=== PATIENT | male | born 1950 | race Hispanic/Latino ===

== ENCOUNTER 2020-06-24 13:27 | Inpatient (IN) | payer OTHER, SELFPAY ==
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
[2020-06-24 15:52] LABS: Hematocrit 41.6 % (39.6-49.0); Lymphocytes % 31.6 % (15.3-44.8); MPV 9.6 fL (7.6-11.3); RBC Red Blood Cell Count 4.83 M/uL (4.33-5.43)
[2020-06-24 15:53] LABS: Protime INR 1.25
[2020-06-24] MEDS ORDERED: MAGNES/ALUMIN/SIMET 30ML UCUP ONE (15:58)
[2020-06-24] MEDS ORDERED: LIDOCAINE VISCOUS 2% SOLN 15 ML UDC ONE (15:58)
[2020-06-24 16:18] LABS: Albumin 3.5 g/dL (3.4-5.0); Bilirubin Direct 0.1 mg/dL (0-0.2); Bilirubin Total 0.4 mg/dL (0.2-1.0); Magnesium 2.1 mg/dL (1.8-2.4); Potassium 3.8 mmol/L (3.5-5.1)
[2020-06-24 16:19] LABS: Troponin (Emerg Dept Use Only) 6.78 ng/mL (0.0-0.045)
--- NOTE | 2020-06-24 16:31 | RAD REPORT ---
EXAM DESCRIPTION: [place] Single View06/24/2020 3:54 pm CLINICAL HISTORY: Chest pain COMPARISON: 2017 FINDINGS: The lungs appear clear of acute infiltrate. The heart is normal size IMPRESSION: No acute abnormalities displayed
--- NOTE | 2020-06-24 16:39 | ER ---
Nurse's Notes [facility] Name: Cj Grubbs Age: 69 yrs Sex: Male : 1950 Arrival Date: 06/24/2020 Time: 13:30 Bed 20 Private MD: Diagnosis: Non-ST elevation (NSTEMI) myocardial infarction Presentation: 06/24 14:40 Chief complaint: Patient states: Irritated throat when eating spicy food x > 1 month. ss Pt states he has been treating it for heartburn, but wants to make sure his heart is okay. Coronavirus screen: Client denies travel out of the [place] in the last 14 days. Ebola Screen: Patient denies exposure to infectious person. Patient denies travel to an Ebola-affected area in the 21 days before illness onset. Initial Sepsis Screen: Does the patient meet any 2 criteria? No. Patient's initial sepsis screen is negative. Does the patient have a suspected source of infection? No. Patient's initial sepsis screen is negative. Risk Assessment: Do you want to hurt yourself or someone else? Patient reports no desire to harm self or others. Onset of symptoms was April 2020. 14:40 Method Of Arrival: Ambulatory ss 14:40 Acuity: JESSICA 3 ss Historical: - Allergies: 14:42 No Known Allergies; ss - PMHx: 14:42 Hypertension; Diabetes - NIDDM; High Cholesterol; ss - Immunization history:: Adult Immunizations unknown. - Social history:: Smoking status: Patient reports the use of cigarette tobacco products, denies chronic smoking, but will smoke occasionally. Screenin:23 Abuse screen: Denies threats or abuse. Nutritional screening: No deficits noted. ll1 Tuberculosis screening: No symptoms or risk factors identified. Fall Risk IV access (20 points). Total [place] Fall Scale indicates No Risk (0-24 pts). Assessment: 15:20 General: Appears in no apparent distress. Behavior is calm, cooperative, appropriate ll1 for age. Pain: Complains of pain in mid chest/throat Quality of pain is described as burning, aching, Is intermittent. Neuro: No deficits noted. Cardiovascular: Reports chest pain, Heart tones S1 S2 Capillary refill < 3 seconds Clubbing of nail beds is absent JVD is absent Patient's skin is warm and dry. Pulses are all present. Respiratory: No deficits noted. GI: Abdomen is flat, Bowel sounds present X 4 quads. Abd is soft and non tender X 4 quads. Reports indigestion, heart burn, worse after eating. 16:20 Reassessment: No changes from previously documented assessment. Patient and/or family ll1 updated on plan of care and expected duration. Pain level reassessed. Patient is alert, oriented x 3, equal unlabored respirations, skin warm/dry/pink. 17:20 Reassessment: No changes from previously documented assessment. Patient and/or family ll1 updated on plan of care and expected duration. Pain level reassessed. Patient is alert, oriented x 3, equal unlabored respirations, skin warm/dry/pink. 18:20 Reassessment: No changes from previously documented assessment. Patient and/or family ll1 updated on plan of care and expected duration. Pain level reassessed. Patient is alert, oriented x 3, equal unlabored respirations, skin warm/dry/pink. 19:20 Reassessment: No changes from previously documented assessment. Patient and/or family jb4 updated on plan of care and expected duration. Pain level reassessed. Patient is alert, oriented x 3, equal unlabored respirations, skin warm/dry/pink. 19:56 Reassessment: Patient appears in no apparent distress at this time. Patient and/or jb4 family updated on plan of care and expected duration. Pain level reassessed. Patient is alert, oriented x 3, equal unlabored respirations, skin warm/dry/pink. Patient denies pain at this time. Patient states feeling better. Vital Signs: 14:40 BP 147 / 85; Pulse 67; Resp 16; Temp 98.2(TE); Pulse Ox 99% on R/A; Weight 97.52 kg; ss Height 5 ft. 6 in. (167.64 cm); Pain 0/10; 16:22 BP 122 / 59; Pulse 64; Resp 16; ll1 16:43 Weight 88.45 kg (M); ll1 19:06 BP 134 / 61; Pulse 63; Resp 17; Pulse Ox 96% on R/A; ll1 19:45 BP 138 / 69; Pulse 63; Resp 20; Pulse Ox 100% on R/A; jb4 16:43 Body Mass Index 31.47 (88.45 kg, 167.64 cm) 1 ED Course: 13:30 Patient arrived in ED. rg4 14:42 Triage completed. ss 14:42 Arm band placed on right wrist. ss 15:20 Lars Fernandez NP is PHCP. pm1 15:20 Vikram Leiva MD is Attending Physician. pm1 15:30 Inserted saline lock: 22 gauge in right antecubital area, using aseptic technique. ll1 Blood collected. 15:31 Lupe Rico, RN is Primary Nurse. ll1 15:55 XRAY Chest (1 view) In Process Unspecified. EDMS 16:23 Patient has correct armband on for positive identification. Bed in low position. Call ll1 light in reach. Side rails up X 1. Pulse ox on. NIBP on. 16:37 Didier Finch is Hospitalizing Provider. pm1 17:57 COVID swab sent to lab. jp3 20:38 Primary Nurse role handed off by Lupe Rico, FREDI jb4 20:38 Neil Pratt, RN is Primary Nurse. jb4 20:39 No provider procedures requiring assistance completed. Patient admitted, IV remains in jb4 place. Administered Medications: 15:44 Drug: GI Cocktail without - (Maalox Suspension 30 ml, Lidocaine Liquid 2 % 15 ll1 ml) Route: PO; 16:32 Drug: Aspirin Chewable Tablet 162 mg Route: PO; ll1 19:29 Follow up: Response: No adverse reaction jb4 16:32 Drug: Metoprolol 12.5 mg Route: PO; ll1 19:29 Follow up: Response: No adverse reaction 4 16:53 Drug: Heparin (MS-Bolus No thrombolytic) - HEParin 60 units/kg {Co-Signature: tammi ll1 (Do Mercado RN).} Route: IVP; Site: right antecubital; 19:29 Follow up: Response: No adverse reaction; RASS: Alert and Calm (0) jb4 16:55 Drug: Heparin (MS Drip) 12 units/kg/hr - (HEParin 18679 units, D5W 500 ml) ll1 {Co-Signature: tammi (Do Mercado RN).} Route: IV; Rate: calculated rate; Site: right antecubital; 20:39 Follow up: Response: No adverse reaction; IV Status: Infusion continued upon admission jb4 17:03 Drug: PlaVIX 300 mg Route: PO; 1 19:28 Follow up: Response: No adverse reaction; RASS: Alert and Calm (0) [facility] Outcome: 16:38 Decision to Hospitalize by Provider. pm1 20:39 Patient left the ED. jb4 20:39 Admitted to Med/surg accompanied by tech, via stretcher, room 211, Report called to berlin Jarrell RN 20:39 Condition: stable 20:39 Discharge instructions given to patient, Instructed on the need for admit, Demonstrated understanding of instructions. Signatures: Dispatcher [employer] EDDC Do Mercado, FREDI RN ss Lars Fernandez, NOEMI CERTIFIED SHORTHAND REPORTER pm1 Renetta Grubbs 4 Neil Pratt RN RN jb4 David Hernandez 3 Lupe Rico RN RN 1 Do Mercado RN ss Corrections: (The following items were deleted from the chart) 16:23 16:22 Inserted saline lock: 22 gauge in right antecubital area, using aseptic ll1 technique. Blood collected. 1 06/25 06:07 01/ 20:39 Admitted to Med/surg accompanied by tech, via stretcher, [place] [id number]
--- NOTE | 2020-06-24 16:39 | EDPHYS ---
Physician Documentation [facility] Name: Cj Grubbs Age: 69 yrs Sex: Male : 1950 Arrival Date: 06/24/2020 Time: 13:30 Bed 20 Private MD: ED Physician Vikram Leiva HPI: 06/24 15:26 This 69 yrs old Male presents to ER via Ambulatory with complaints of pm1 Heartburn. 15:26 The patient or guardian reports chest pain that is located primarily in the mid-sternal pm1 area. Onset: 1 month(s) ago. The pain does not radiate. Associated signs and symptoms: The patient has no apparent associated signs or symptoms, Pertinent negatives: abdominal pain, cough, dizziness, headache, nausea, palpitations, shortness of breath, vomiting. The chest pain is described as a pressure. Duration: The patient or guardian reports multiple episodes, has chest pain each morning. Modifying factors: The symptoms are alleviated by sometimes tums helps. the symptoms are aggravated by eating. Severity of pain: in the emergency department the pain is unchanged. The patient has not experienced similar symptoms in the past. The patient has not recently seen a physician, the patient's primary care provider is Dr. Kohli. Historical: - Allergies: 14:42 No Known Allergies; ss - PMHx: 14:42 Hypertension; Diabetes - NIDDM; High Cholesterol; ss - Immunization history:: Adult Immunizations unknown. - Social history:: Smoking status: Patient reports the use of cigarette tobacco products, denies chronic smoking, but will smoke occasionally. ROS: 15:26 Constitutional: Negative for fever, chills, and weight loss, Neck: Negative for injury, pm1 pain, and swelling. 15:26 Respiratory: Negative for shortness of breath, cough, wheezing, and pleuritic chest pain, Abdomen/GI: Negative for abdominal pain, nausea, vomiting, diarrhea, and constipation, Back: Negative for injury and pain, MS/Extremity: Negative for injury and deformity, Skin: Negative for injury, rash, and discoloration, Neuro: Negative for headache, weakness, numbness, tingling, and seizure. 15:26 Cardiovascular: Positive for chest pain, Negative for edema, orthopnea, palpitations. Exam: 15:26 Constitutional: This is a well developed, well nourished patient who is awake, alert, pm1 and in no acute distress. Head/Face: Normocephalic, atraumatic. Chest/axilla: Normal chest wall appearance and motion. Nontender with no deformity. No lesions are appreciated. Cardiovascular: Regular rate and rhythm with a normal S1 and S2. No gallops, murmurs, or rubs. Normal PMI, no JVD. No pulse deficits. Respiratory: Lungs have equal breath sounds bilaterally, clear to auscultation and percussion. No rales, rhonchi or wheezes noted. No increased work of breathing, no retractions or nasal flaring. 15:26 Back: No spinal tenderness. No costovertebral tenderness. Full range of motion. Skin: Warm, dry with normal turgor. Normal color with no rashes, no lesions, and no evidence of cellulitis. MS/ Extremity: Pulses equal, no cyanosis. Neurovascular intact. Full, normal range of motion. 15:26 Abdomen/GI: Exam negative for acute changes, Inspection: abdomen appears normal, Palpation: abdomen is soft and non-tender, in all quadrants. 15:26 Neuro: Exam negative for acute changes, Orientation: is normal, Mentation: is normal, Motor: is normal, moves all fours. Vital Signs: 14:40 BP 147 / 85; Pulse 67; Resp 16; Temp 98.2(TE); Pulse Ox 99% on R/A; Weight 97.52 kg; ss Height 5 ft. 6 in. (167.64 cm); Pain 0/10; 16:22 BP 122 / 59; Pulse 64; Resp 16; ll1 16:43 Weight 88.45 kg (M); ll1 19:06 BP 134 / 61; Pulse 63; Resp 17; Pulse Ox 96% on R/A; ll1 19:45 BP 138 / 69; Pulse 63; Resp 20; Pulse Ox 100% on R/A; jb4 16:43 Body Mass Index 31.47 (88.45 kg, 167.64 cm) ll1 MDM: 15:20 Patient medically screened. pm1 16:20 Data reviewed: vital signs. Data interpreted: Pulse oximetry: on room air is 99 %. pm1 Interpretation: normal. Counseling: I had a detailed discussion with the patient and/or guardian regarding: the historical points, exam findings, and any diagnostic results supporting the discharge/admit diagnosis, lab results, radiology results, the need for further work-up and treatment in the hospital. 16:30 ED course: Patient currently chest pain free. Reports resolution with GI cocktail. pm1 16:46 Physician consultation: Shaheed Apple MD was called at 16:28, was contacted at 16:46, pm1 regarding consult, patient's condition, and will see patient. 17:23 Physician consultation: Didier Jaykassandra was called at 17:00, was contacted at 17:20, pm1 regarding admission, patient's condition, requests consultation with Dr. Apple for his treatment plan. 17:32 Physician consultation: Shaheed Apple MD in the emergency department to see patient at pm1 17:32, Cardiac cath on Friday. 06/24 15:25 Order name: Basic Metabolic Panel; Complete Time: 16:26 pm1 06/24 15:25 Order name: CBC with Diff; Complete Time: 16:19 pm1 06/24 15:25 Order name: LFT's; Complete Time: 16:26 pm1 06/24 15:25 Order name: Magnesium; Complete Time: 16:26 pm06/24 15:25 Order name: NT PRO-BNP; Complete Time: 16:26 pm1 06/24 15:25 Order name: PT-INR; Complete Time: 16:19 pm06/24 15:25 Order name: Troponin (emerg Dept Use Only); Complete Time: 16:26 pm1 06/24 15:25 Order name: XRAY Chest (1 view); Complete Time: 16:32 pm06/24 16:57 Order name: CL CARDIAC CATH - REQUEST EDMS 06/24 17:38 Order name: COVID-19 pm1 06/24 19:29 Order name: SARS-COV-2 RT PCR; Complete Time: 19:50 EDMS 06/24 15:25 Order name: EKG; Complete Time: 15:27 pm06/24 15:25 Order name: Cardiac monitoring; Complete Time: 16:25 pm06/24 15:25 Order name: EKG - Nurse/Tech; Complete Time: 16:25 pm1 06/24 15:25 Order name: IV Saline Lock; Complete Time: 15:31 pm06/24 15:25 Order name: Labs collected and sent; Complete Time: 15:31 pm1 06/24 15:25 Order name: O2 Per Protocol; Complete Time: 15:31 pm1 06/24 15:25 Order name: O2 Sat Monitoring; Complete Time: 15:31 pm1 Administered Medications: 15:44 Drug: GI Cocktail without - (Maalox Suspension 30 ml, Lidocaine Liquid 2 % 15 ll1 ml) Route: PO; 16:32 Drug: Aspirin Chewable Tablet 162 mg Route: PO; ll1 19:29 Follow up: Response: No adverse reaction jb4 16:32 Drug: Metoprolol 12.5 mg Route: PO; ll1 19:29 Follow up: Response: No adverse reaction jb4 16:53 Drug: Heparin (MA-Bolus No thrombolytic) - HEParin 60 units/kg {Co-Signature: tammi paz1 (Do Mercado RN).} Route: IVP; Site: right antecubital; 19:29 Follow up: Response: No adverse reaction; RASS: Alert and Calm (0) jb4 16:55 Drug: Heparin (MA Drip) 12 units/kg/hr - (HEParin 13873 units, D5W 500 ml) ll1 {Co-Signature: tammi (Do Mercado RN).} Route: IV; Rate: calculated rate; Site: right antecubital; 20:39 Follow up: Response: No adverse reaction; IV Status: Infusion continued upon admission jb4 17:03 Drug: PlaVIX 300 mg Route: PO; ll1 19:28 Follow up: Response: No adverse reaction; RASS: Alert and Calm (0) jb4 Disposition: 06/25 07:29 Co-signature as Attending Physician, Vikram Leiva MD I agree with the assessment and [facility] plan of care. Disposition: 06/24/20 16:38 Hospitalization ordered by Didier Finch for Inpatient Admission. Preliminary diagnosis is Non-ST elevation (NSTEMI) myocardial infarction. - Bed requested for Telemetry/MedSurg (Inpatient). - Status is Inpatient Admission. jb4 - Condition is Stable. - Problem is new. - Symptoms have improved. Signatures: Dispatcher [employer] EDTomasa Cano RN RN dw Anderson, Corey, MD MD cha Smirch, Shelby, RN RN ss Marinas, Patrick, WELFARE INVESTIGATOR WELFARE INVESTIGATOR pm1 Neil Pratt RN RN jb4 Lupe Rico RN RN ll1 Do Mercado RN ss Corrections: (The following items were deleted from the chart) 06/24 19:47 16:38 Hospitalization Ordered by Didier Finch for Inpatient Admission. Preliminary dw diagnosis is Non-ST elevation (NSTEMI) myocardial infarction. Bed requested for Telemetry/MedSurg (Inpatient). Status is Inpatient Admission. Condition is Stable. Problem is new. Symptoms have improved. pm1 20:39 19:47 06/24/2020 16:38 Hospitalization Ordered by Didier Finch for Inpatient jb4 Admission. Preliminary diagnosis is Non-ST elevation (NSTEMI) myocardial infarction. Bed requested for Telemetry/MedSurg (Inpatient). Status is Inpatient Admission. Condition is Stable. Problem is new. Symptoms have improved. dw
[2020-06-24] MEDS ORDERED: ASPIRIN 81 MG CHEWABLE TABLET ONE (16:43)
[2020-06-24] MEDS ORDERED: METOPROLOL TAR 25 MG TAB ONE (16:44)
[2020-06-24] MEDS ORDERED: HEPARIN 5000 UNIT/ML 1 ML VIAL ONE (16:53)
[2020-06-24] MEDS ORDERED: HEPARIN/D5W 25,000 UNIT/500 ML BAG IV ONE (16:53)
[2020-06-24] MEDS ORDERED: CLOPIDOGREL 75 MG TABLET ONE (17:16)
--- NOTE | 2020-06-24 18:20 | P.HP ---
Certification for Inpatient Patient admitted to: Inpatient With expected LOS: >2 Midnights Practitioner: I am a practitioner with admitting privileges, knowledge of patient current condition, hospital course, and medical plan of care. Services: Services provided to patient in accordance with Admission requirements found in Title 42 Section 412.3 of the Code of Federal Regulations Patient History Date of Service: 06/24/20 Reason for admission: Chest pain History of Present Illness: 69-year-old Gentleman with a history of diabetes mellitus, hypertension presented to the emergency department with a complaint left-sided anterior chest pain of sudden onset. Symptoms preceded by intermittent heartburn. His troponin in the emergency department was significantly elevated to 6. EKG demonstrated sinus rhythm. Patient was asymptomatic on arrival to the emergency department. He denied any diaphoresis or palpitation or shortness of breath. He rated his pain as mild, no aggravating or relieving factors. Patient was given aspirin, metoprolol as well as GI cocktail. Cardiology was contacted by the ED provider recommend hospitalization for cardiac catheterization on Friday06/26/2019. Patient admitted for further management. - Past Medical/Surgical History -: DM type 2 -: Hypertension -: Hypercholesteremia - Family History Mother -: Heart disease Brother -: Heart disease - Social History Smoking Status: Current some day smoker Alcohol use: No CD- Drugs: No Place of Residence: Home Review of Systems Other: Except as documented, all other systems reviewed and negative. Physical Examination - Physical Exam General: Alert, In no apparent distress, Oriented x3 HEENT: Atraumatic, PERRLA, Mucous membr. moist/pink, EOMI, Sclerae nonicteric Neck: Supple, JVD not distended Respiratory: Clear to auscultation bilaterally, Normal air movement Cardiovascular: No edema, Regular rate/rhythm, Normal S1 S2, No murmurs Capillary refill: <2 Seconds Gastrointestinal: Normal bowel sounds, Soft and benign, Non-distended, No tenderness Musculoskeletal: No swelling, No tenderness Integumentary: No rashes, No erythema Neurological: Normal speech, Normal strength at 5/5 x4 extr, Cranial nerves 3-12 intact - Studies Laboratory Data (last 24 hrs) 06/24/20 15:35: PT 14.7 H, INR 1.25 06/24/20 15:35: WBC 12.5 H, Hgb 13.7, Hct 41.6, Plt Count 210 06/24/20 15:35: Sodium 138, Potassium 3.8, BUN 15, Creatinine 0.92, Glucose 63 L, Magnesium 2.1, Total Bilirubin 0.4, AST 70 H, ALT 30, Alkaline Phosphatase 72 Assessment and Plan - Problems (Diagnosis) (1) NSTEMI (non-ST elevated myocardial infarction) Current Visit: Yes Status: Acute (2) DM type 2 (diabetes mellitus, type 2) Current Visit: Yes Status: Acute (3) Hypertension Current Visit: Yes Status: Acute (4) Hypercholesteremia Current Visit: Yes Status: Acute - Plan Admit the patient to the medical floor. Start heparin drip per cardiology recommendation. Start aspirin and Plavix. Metoprolol 25 mg b.i.d. Obtain echocardiogram. Continue to trend troponin. Serial EKG. Start Lipitor and check lipid profile. Insulin sliding scale for glucose management. - Advance Directives Does patient have a Living Will: No Does patient have a Durable POA for Healthcare: No
--- NOTE | 2020-06-24 20:56 | CON ---
Date of Consultation: 06/24/2020 Reason For Admission: Non-ST elevation myocardial infarction. History Of Present Illness: Mr. Grubbs is a 69-year-old [place] male with history of diabetes , hypertension, dyslipidemia, has been having intermittent chest pain since April. His pain is no nexertional, usually occurs after eating. However, it was worse today and he decided to come to the hospital. His symptoms actually were relieved with GI cocktail. He had a normal EKG and normal x-ra y. However, his troponin came back 6.78, indicating a non-ST elevation myocardial infarction. I was asked to see him. He denied PND, orthopnea, pedal edema, palpitations, or syncope. Past Medical History: As stated earlier. Allergies: NONE. Review of Systems: Negative. Social History: Negative. Family History: Positive for heart disease. Medications: Listed by Dr. Finch. Physical Examination: Vital signs: Stable. He was afebrile. HEENT: Negative. Neck: Supple with no bruit. Chest: Clear to auscultation and percussion. Cardiac: Revealed a regular rhythm and rate. No murmurs, gallops, or rubs. Abdomen: Benign. Extremities: Revealed no clubbing, cyanosis, or edema. Diagnostic Data: As stated earlier. Impression And Plan: 1.Non-ST elevation myocardial infarction. 2.Diabetes. 3.Hypertension. 4.Dyslipidemia. I think the patient needs to be on aspirin, heparin, beta edward and a statin. He needs to be on hi s home medication. He needs to have a heart catheterization done on Friday as an inpatient. The manjeet e will be discussed with the patient in more details. He understands the risk and the benefits of th e procedure and he agrees to proceed. EWA/TAJ Voice ID: [id number] Report ID: [id number]
[2020-06-24] MEDS ORDERED: NITROGLYCERIN 0.4 MG/TAB SL PRN (20:57)
[2020-06-24] MEDS ORDERED: MORPHINE 2 MG/ML SYR IV PRN (20:57)
[2020-06-24] MEDS ORDERED: HEPARIN/D5W 500 ML IV PRN (20:57)
[2020-06-24] MEDS: INSULIN -REGULAR HUMAN 50 UNIT/0.5 ML ML SQ SCH (21:00)
[2020-06-24 21:31] LABS: Absolute Lymphocytes (CBC) 4.5 K/uL (0.7-4.9); Basophils % 0.9 % (0-1.3); Hematocrit 39.6 % (39.6-49.0); Lymphocytes % 30.6 % (15.3-44.8); MPV 9.4 fL (7.6-11.3); RBC Red Blood Cell Count 4.66 M/uL (4.33-5.43)
[2020-06-24 21:37] LABS: Protime INR 1.29
[2020-06-24 22:02] LABS: Troponin I 7.37 ng/mL (0.0-0.045)
[2020-06-24] MEDS: METOPROLOL TAR 50 MG TAB PO SCH (22:20)
[2020-06-24 23:13] VITALS: BMI 31.4
[2020-06-25] MEDS ORDERED: MELATONIN 5 MG TABLET PO ONE (01:27)
[2020-06-25 05:56] LABS: Absolute Lymphocytes (CBC) 3.9 K/uL (0.7-4.9); Basophils % 0.5 % (0-1.3); Hematocrit 38.7 % (39.6-49.0); MPV 10.1 fL (7.6-11.3); RBC Red Blood Cell Count 4.53 M/uL (4.33-5.43)
[2020-06-25 06:01] LABS: Potassium 3.9 mmol/L (3.5-5.1)
[2020-06-25] MEDS: INSULIN -REGULAR HUMAN 50 UNIT/0.5 ML ML SQ SCH ×4 (07:30→20:16)
[2020-06-25] MEDS: ASPIRIN EC 81 MG TAB PO SCH (09:22)
[2020-06-25] MEDS: CLOPIDOGREL 75 MG TABLET PO SCH (09:22)
[2020-06-25] MEDS: METOPROLOL TAR 50 MG TAB PO SCH ×2 (09:23→20:14)
--- NOTE | 2020-06-25 11:10 | P.PN ---
Subjective Date of Service: 06/25/20 Chief Complaint: Chest pain Patient denies any chest pain. No other complain. Troponin elevated but trended flat. Physical Examination - Vital Signs Temperature: 98.8 F Blood Pressure: 119/57 Pulse: 60 Respirations: 16 Pulse Ox (%): 95 - Physical Exam General: Alert, In no apparent distress HEENT: Mucous membr. moist/pink Respiratory: Clear to auscultation bilaterally, Normal air movement Cardiovascular: No edema, Regular rate/rhythm, Normal S1 S2 Gastrointestinal: Normal bowel sounds, Soft and benign, Non-distended, No tenderness Musculoskeletal: No swelling, No tenderness Integumentary: No rashes Neurological: Normal speech, Normal strength at 5/5 x4 extr - Studies Laboratory Data (last 24 hrs) 06/24/20 15:35: PT 14.7 H, INR 1.25 06/24/20 15:35: WBC 12.5 H, Hgb 13.7, Hct 41.6, Plt Count 210 06/24/20 15:35: Sodium 138, Potassium 3.8, BUN 15, Creatinine 0.92, Glucose 63 L, Magnesium 2.1, Total Bilirubin 0.4, AST 70 H, ALT 30, Alkaline Phosphatase 72 Assessment And Plan - Current Problems (Diagnosis) (1) NSTEMI (non-ST elevated myocardial infarction) Current Visit: Yes Status: Acute (2) DM type 2 (diabetes mellitus, type 2) Current Visit: Yes Status: Acute (3) Hypertension Current Visit: Yes Status: Acute (4) Hypercholesteremia Current Visit: Yes Status: Acute - Plan Continue heparin drip, aspirin and Plavix. Metoprolol 25 mg b.i.d. holding home antihypertensives-amlodipine and benazepril for now. Echocardiogram is pending. Lipid profile reviewed. LDL 100. Continue Lipitor. Insulin sliding scale for glucose management. Dr. Apple is planning cardiac catheterization tomorrow. Hold metformin and glimepiride.
--- NOTE | 2020-06-25 15:28 | EKG ---
Test Date: 2020-06-24 Test Time: 15:51:14 Feed Elevator Worker: SALONI MEASUREMENT RESULTS: Intervals: Rate: 67 DE: 200 QRSD: 76 QT: 386 QTc: 407 [place]: P: 29 DE: 200 QRS: 30 T: 14 INTERPRETIVE STATEMENTS: Normal sinus rhythm Normal ECG No previous ECG available for comparison Electronically Signed On 06-25-20 15:26:31 PUBLIC HEALTH PROFESSOR by Shaheed Apple
[2020-06-25] MEDS: HEPARIN/D5W 25,000 UNIT/500 ML BAG IV SCH (17:30)
[2020-06-25] MEDS: ATORVASTATIN 10 MG TAB PO SCH (20:14)
[2020-06-26] MEDS: METOPROLOL TAR 50 MG TAB PO SCH ×2 (05:24→20:17)
[2020-06-26] MEDS: ASPIRIN EC 81 MG TAB PO SCH (05:26)
[2020-06-26] MEDS: CLOPIDOGREL 75 MG TABLET PO SCH (05:26)
[2020-06-26 05:30] LABS: MPV 9.8 fL (7.6-11.3)
[2020-06-26 07:05] LABS: Platelet Estimate ADEQ
[2020-06-26] MEDS ORDERED: HEPA 1000U/500MLS 1,000 UNIT/500 ML BAG IV ONE (07:11)
[2020-06-26] MEDS: INSULIN -REGULAR HUMAN 50 UNIT/0.5 ML ML SQ SCH ×4 (07:30→20:17)
[2020-06-26] MEDS ORDERED: NA CHLORIDE 0.9% 500 ML ONE (08:27)
[2020-06-26] MEDS ORDERED: FENTANYL CITR 100 MCG/2 ML ONE (09:55)
[2020-06-26] MEDS ORDERED: NA CHLORIDE 0.9% 0 ML ONE (09:55)
[2020-06-26] MEDS ORDERED: ATROPINE SULF 1 MG/10 ML SYR IV ONE (09:55)
[2020-06-26] MEDS ORDERED: MIDAZOLAM HCL 2 MG/2 ML INJ ONE (09:55)
--- NOTE | 2020-06-26 09:55 | PN ---
Date of Progress Note: 06/25/2020 Mr. Grubbs had came in with a non-ST elevation myocardial infarction. He has multiple risk factors i ncluding hypertension, diabetes, dyslipidemia. EKG is normal. Chest x-ray is normal. Telemetry is normal. No reported symptoms of chest pain. Troponin slightly increased since yesterday. Creatinin e remained normal. Plan for catheterization on Friday to define his coronary anatomy. The patient u nderstands the risks and the benefits of the procedure and he agrees to proceed. EWA/TAJ Voice ID: [id number] Report ID: [id number]
--- NOTE | 2020-06-26 10:55 | OP ---
Surgeon: Shaheed Apple MD Procedure In Detail: Mr. Grubbs, 69, was admitted to the hospital on 06/24/2020 with non-ST elevatio n myocardial infarction, brought to the cath lab nurse today as an inpatient, prepped and draped in the rou saulo sterile fashion. A 6-Malian sheath introduced in the right common femoral artery successfully. Angiography there showed a common femoral artery stenosis. The sheath was inserted above that. Sta rClose was used to close the case. Selective coronary arteriogram with JL4 and JR4 respectively were used. He had a 90% stenosis in the proximal RCA, 90% stenosis in the mid RCA with good distal vesse l on the right side. He had an 80% ostial left main, 80% proximal LAD, 80% mid LAD. The circumflex was diffusely diseased, he was codominant. There were no complications. Blood Loss: 5 mL. Postoperative Diagnosis: Severe coronary artery disease. Plan: For coronary artery bypass surgery. I will make arrangements for the patient to transfer to [facility] today. We will resume his heparin. Echocardiogram will be done later. Case was discussed wi th the patient and the family. EWA/TAJ Voice ID: [id number] Report ID: [id number]
[2020-06-26] MEDS ORDERED: HEPARIN 5000 UNIT/ML 1 ML VIAL IV SCH (14:00)
--- NOTE | 2020-06-26 15:13 | ECHO ---
HEIGHT: 5 ft 6 in WEIGHT: 195 lb 0 oz DATE OF STUDY: 06/26/[address]: nishant tolliver 2-DIMENSIONAL: YES M.MODE: YES DOPPLER: YES COLOR FLOW: YES TDS: PORTABLE: DEFINITY: BUBBLE STUDY: DIAGNOSIS: NON ST ELEVATION MYOCARDIAL INFARCTION CARDIAC HISTORY: CATHERIZATION: YES SURGERY: PROSTHETIC VALVE: PACEMAKER: MEASUREMENTS (cm) DIASTOLIC (NORMALS) SYSTOLIC (NORMALS) IVSd 1.2 (0.6-1.2) LA Diam 4.7 (1.9-4.0) LVEF 55-60% LVIDd 4.8 (3.5-5.7) LVIDs 3.0 (2.0-3.5) %FS 39% LVPWd 1.1 (0.6-1.2) Ao Diam 3.1 (2.0-3.7) 2 DIMENSIONAL ASSESSMENT: RIGHT ATRIUM: NORMAL LEFT ATRIUM: NORMAL RIGHT VENTRICLE: NORMAL LEFT VENTRICLE: NORMAL TRICUSPID VALVE: NORMAL MITRAL VALVE: MILD MITRAL REGURGITATION PULMONIC VALVE: NORMAL AORTIC VALVE: MILD CALCIFICATION PERICARDIAL EFFUSION: NONE AORTIC ROOT: NORMAL LEFT VENTRICULAR WALL MOTION: NORMAL DOPPLER/COLOR FLOW: NORMAL COMMENTS: NORMAL LEFT VENTRICULAR EJECTON FRACTION 55-60%. NORMAL WALL MOTION. MILD MITRAL REGURGITATION. TECHNOLOGIST: BARRY ALFONSO
--- NOTE | 2020-06-26 15:24 | P.PN ---
Subjective Date of Service: 06/26/20 Chief Complaint: Chest pain Status post cardiac catheterization today. Patient found have multiple cardiac vessel occlusions and needing CABG. Physical Examination - Vital Signs Temperature: 98.7 F Blood Pressure: 143/67 Pulse: 57 Respirations: 18 Pulse Ox (%): 96 - Physical Exam General: Alert, In no apparent distress Neck: Supple, JVD not distended Respiratory: Clear to auscultation bilaterally, Normal air movement Cardiovascular: No edema, Regular rate/rhythm, Normal S1 S2 Gastrointestinal: Soft and benign, Non-distended, No tenderness Musculoskeletal: No swelling Integumentary: No rashes Neurological: Normal strength at 5/5 x4 extr, Cranial nerves 3-12 intact Assessment And Plan - Current Problems (Diagnosis) (1) NSTEMI (non-ST elevated myocardial infarction) Current Visit: Yes Status: Acute (2) DM type 2 (diabetes mellitus, type 2) Current Visit: Yes Status: Acute (3) Hypertension Current Visit: Yes Status: Acute (4) Hypercholesteremia Current Visit: Yes Status: Acute - Plan Continue heparin drip, aspirin and Plavix. Metoprolol 25 mg b.i.d. holding home antihypertensives-amlodipine and benazepril for now. Continue Lipitor. Insulin sliding scale for glucose management. Dr. Apple is arranging for patient to be transferred to [place] for CABG.
[2020-06-26 17:56] LABS: Absolute Lymphocytes (CBC) 3.7 K/uL (0.7-4.9); Basophils % 0.7 % (0-1.3); Hematocrit 40.5 % (39.6-49.0); Lymphocytes % 32.8 % (15.3-44.8); MPV 9.5 fL (7.6-11.3); RBC Red Blood Cell Count 4.75 M/uL (4.33-5.43)
--- NOTE | 2020-06-26 18:18 | P.DS ---
Admission Date: 06/24/20 Discharge Date: 06/26/20 Disposition: TRANSFER TO [facility] Discharge Condition: FAIR Reason for Admission: Chest pain - Problems (1) NSTEMI (non-ST elevated myocardial infarction) Current Visit: Yes Status: Acute (2) DM type 2 (diabetes mellitus, type 2) Current Visit: Yes Status: Acute (3) Hypertension Current Visit: Yes Status: Acute (4) Hypercholesteremia Current Visit: Yes Status: Acute Brief History of Present Illness: 69-year-old Gentleman with a history of diabetes mellitus, hypertension presented to the emergency department with a complaint left-sided anterior chest pain of sudden onset. Symptoms preceded by intermittent heartburn. His troponin in the emergency department was significantly elevated to 6. EKG demonstrated sinus rhythm. Patient was asymptomatic on arrival to the emergency department. He denied any diaphoresis or palpitation or shortness of breath. He rated his pain as mild, no aggravating or relieving factors. Patient was given aspirin, metoprolol as well as GI cocktail. Cardiology was contacted by the ED provider who recommend hospitalization for cardiac catheterization on M onday 06/26/2019. Patient admitted for further management. Hospital Course: Patient admitted and started on heparin drip, aspirin, Plavix, metoprolol and statin per ACS protocol. His troponin was trended and it went from 6 to 7. Cardiac catheterization was performed today and patient found to have 90% stenosis in the proximal RCA, 90% stenosis in the mid RCA with good distal vessel on the right side. He had an 80% ostial left main, 80% proximal LAD, 80% mid LAD. Cardiology recommend CABG and made arrangements for patient to be transferred to [facility] for cardiac bypass surgery. The patient has been accepted for transfer. Vitals as stable and he is deemed stable for transfer. Vital Signs/Physical Exam: Temp Pulse Resp BP Pulse Ox 98.7 F 57 18 143/67 H 96 06/26/20 15:24 06/26/20 15:24 06/26/20 15:24 06/26/20 15:24 06/26/20 15:24 General: Alert, In no apparent distress Respiratory: Clear to auscultation bilaterally, Normal air movement Cardiovascular: Regular rate/rhythm, Normal S1 S2 Gastrointestinal: Soft and benign, No tenderness Musculoskeletal: No swelling Integumentary: No rashes Neurological: Normal strength at 5/5 x4 extr Laboratory Data at Discharge: WBC Cancelled 06/26/20 18:15 Hgb Cancelled 06/26/20 18:15 Hct Cancelled 06/26/20 18:15 Plt Count Cancelled 06/26/20 18:15 PT 15.1 SECONDS (9.5-12.5) H 06/24/20 21:19 INR 1.29 06/24/20 21:19 APTT 25.3 SECONDS (24.3-36.9) 06/26/20 12:39 Sodium 139 mmol/L (136-145) 06/25/20 05:09 Potassium 3.9 mmol/L (3.5-5.1) 06/25/20 05:09 BUN 13 mg/dL (7-18) 06/25/20 05:09 Creatinine 0.92 mg/dL (0.55-1.3) 06/25/20 05:09 Glucose 103 mg/dL (74-106) 06/25/20 05:09 Magnesium 2.1 mg/dL (1.8-2.4) 06/24/20 15:35 Total Bilirubin 0.4 mg/dL (0.2-1.0) 06/24/20 15:35 AST 70 U/L (15-37) H 06/24/20 15:35 ALT 30 U/L (12-78) 06/24/20 15:35 Alkaline Phosphatase 72 U/L (45-117) 06/24/20 15:35 Troponin I 5.56 ng/mL (0.0-0.045) H* D 06/25/20 01:17 Triglycerides 114 mg/dL (<150) 06/24/20 21:19 Cholesterol 167 mg/dL (<200) 06/24/20 21:19 HDL Cholesterol 44 mg/dL (40-60) 06/24/20 21:19 Cholesterol/HDL Ratio 3.80 06/24/20 21:19 Home Medications: Amlodipine Besylate/Benazepril [Lotrel 10-20 mg Capsule] 1 each PO DAILY 06/24/20 Glimepiride [Amaryl] 10 mg PO DAILY 06/24/20 Metformin ER [Glucophage ER] 750 mg PO BID 06/24/20 Pravastatin Sodium 10 mg PO DAILY 06/24/20 Followup: Andrzej Cano MD [Primary Care Provider] - Time spent managing pt's care (in minutes): 35
[2020-06-26 18:39] VITALS: TEMP 98.9
[2020-06-26] MEDS: ATORVASTATIN 10 MG TAB PO SCH (20:17)
[2020-06-26 20:18] VITALS: BP 164/76
[2020-06-26 22:19] VITALS: O2SAT 93
[2020-06-26] MEDS: HEPARIN/D5W 25,000 UNIT/500 ML BAG IV SCH (23:15)
== END 2020-06-27 | disposition short-term general hospital (02) | DRG 282 ==
LOC: ER 13:27 → ERHOLD 18:15 → 2ND 20:21
PROVIDERS: ADMIT Internal Medicine; ATTEND Internal Medicine
PROC: 4A023N7 Measurement of Cardiac Sampling and Pressure, Left Heart, Percutaneous Approach (ICD-10-PCS; principal; 2020-06-26)
PROC: B2111ZZ Fluoroscopy of Multiple Coronary Arteries using Low Osmolar Contrast (ICD-10-PCS; 2020-06-26)
DX: I21.4 Non-ST elevation (NSTEMI) myocardial infarction (principal); I10 Essential (primary) hypertension; E11.9 Type 2 diabetes mellitus without complications; E78.5 Hyperlipidemia, unspecified; I25.10 Atherosclerotic heart disease of native coronary artery without angina pectoris; E78.00 Pure hypercholesterolemia, unspecified; F17.200 Nicotine dependence, unspecified, uncomplicated; Z79.84 Long term (current) use of oral hypoglycemic drugs; Z79.899 Other long term (current) drug therapy; Z20.822 Contact with and (suspected) exposure to COVID-19
CPT/HCPCS: 36415; 71045; 80048; 80061; 80076; 82947; 83735; 83880; 84484; 85025; 85049; 85610; 85730; 93005; 93306; 93454; 96365; 96366; 99285; C1893; J0583; J1644; J2250; J3010; J7040; U0003

== ENCOUNTER 2021-11-05 06:40 | Day surgery (SDC) | payer OTHER ==
[2021-11-02 13:05] LABS: Absolute Lymphocytes (CBC) 3.4 K/uL (0.7-4.9); Hematocrit 41.1 % (39.6-49.0); Lymphocytes % 43.4 % (15.3-44.8); MPV 9.4 fL (7.6-11.3); RBC Red Blood Cell Count 4.68 M/uL (4.33-5.43)
[2021-11-02 13:11] LABS: Protime INR 1.23
--- NOTE | 2021-11-02 14:01 | RAD REPORT ---
EXAM DESCRIPTION: RAD - Chest Pa And Lat (2 Views) - 11/02/2021 1:53 pm CLINICAL HISTORY: Pre op pending carotid angiogram Chest pain. COMPARISON: Chest Single View dated 06/24/2020; Chest Pa And Lat (2 Views) dated 06/24/2017 FINDINGS: The lungs are clear. The heart is normal in size. Sternotomy. Postsurgical left clavicle. IMPRESSION: No acute or concerning finding suspected.
[2021-11-05] MEDS ORDERED: NA CHLORIDE 0.9% 500 ML ONE (06:51)
[2021-11-05] MEDS ORDERED: HEPA 1000U/500MLS 1,000 UNIT/500 ML BAG IV ONE (06:54)
[2021-11-05] MEDS ORDERED: LIDOCAINE 1% MPF 30 ML VIAL ONE (06:54)
[2021-11-05 07:10] VITALS: TEMP 97
[2021-11-05] MEDS ORDERED: MIDAZOLAM HCL 2 MG/2 ML INJ ONE ×2 (07:29→07:41)
[2021-11-05] MEDS ORDERED: FENTANYL CITR 100 MCG/2 ML ONE (07:29)
[2021-11-05] MEDS ORDERED: ATROPINE SULF 1 MG/10 ML SYR IV ONE (07:29)
[2021-11-05 09:07] VITALS: O2SAT 98
[2021-11-05 09:44] VITALS: BP 139/61
--- NOTE | 2021-11-05 10:10 | EKG ---
Test Date: 2021-11-02 Test Time: 11:42:28 Business Reporting Developer: MAXWELL MEASUREMENT RESULTS: Intervals: Rate: 53 [place]: 222 QRSD: 74 QT: 450 QTc: 422 [place]: P: 30 [place]: 222 QRS: 6 T: 23 INTERPRETIVE STATEMENTS: Sinus bradycardia with 1st degree AV block Possible Left atrial enlargement Possible Inferior infarct, age undetermined Abnormal ECG Compared to ECG 06/24/2020 15:51:14 First degree AV block now present Myocardial infarct finding now present Sinus rhythm no longer present Electronically Signed On 11-05-21 10:03:12 CDT by Shaheed Apple
--- NOTE | 2021-11-05 10:15 | OP ---
Surgeon: Shaheed Apple MD Sludge Filtration Operator: Ms. Marta Rubio Procedure: Admitted to my service as an outpatient for a bilateral selective carotid angiogram. Indication: CVD. Mr. Grubbs is 71. He has had a history of CABG, dyslipidemia, hypertension, abnor mal carotid Doppler bilaterally. Procedure In Detail: Brought to the microbiological lab technician today, prepped and draped in the routine sterile fashio n. Given Versed and fentanyl for sedation. A 6-Telugu sheath was introduced in the right common fem oral artery successfully using the Seldinger technique and 10 cc xylocaine. Angiography there was no rmal. Angio-Seal was used to close the case. JR4 6-Telugu catheter was used to cannulate the right carotid and the left carotid selectively and on the common carotid side. Was found to have an 80% ri ght ICA, 90% left ICA, 90% left ECA, normal common carotid bilaterally. Patient tolerated the proced ure well. There were no complications. Blood Loss: 5 mL. Postoperative Diagnosis: Severe cerebrovascular disease. Plan: Bilateral carotid endarterectomy. Anesthesia: Total conscious sedation 45 minutes. Patient will be going home today after 2 hours of bedrest. He will have a CD with him and I will radha e arrangements for surgery for him as an outpatient. EWA/TAJ Voice ID: [id number] Report ID: [id number]
== END 2021-11-05 09:50 | disposition home or self-care (01) ==
LOC: CCL 06:40
DX: I65.23 Occlusion and stenosis of bilateral carotid arteries (principal); I25.10 Atherosclerotic heart disease of native coronary artery without angina pectoris; I10 Essential (primary) hypertension; E78.2 Mixed hyperlipidemia; R00.1 Bradycardia, unspecified; E11.9 Type 2 diabetes mellitus without complications; F17.290 Nicotine dependence, other tobacco product, uncomplicated; Z95.1 Presence of aortocoronary bypass graft; Z79.899 Other long term (current) drug therapy; Z20.822 Contact with and (suspected) exposure to COVID-19; Z82.49 Family history of ischemic heart disease and other diseases of the circulatory system
CPT/HCPCS: 93005; 85025; 80048; 36415; 85610; 82947; 85730; 71046; 36222; U0003; C1893; C1760; G0269; J2250; J3010; J7040; J1644

== ENCOUNTER 2021-11-18 09:54 | Emergency (ER) | payer OTHER ==
--- OUTSIDE RECORDS SUMMARY | 2021-11-18 10:00 | XMS REPORT | Continuity of Care Document ---
:1950 Author Organization [facility] t Address [address] [place] [address] Care Team Providers Name Role Phone IVON MARTINEZ Primary Care Physician Unavailable LEIGH ANN MOSS Attending Clinician Unavailable CARINE VICENTE Attending Clinician Unavailable JONATHAN CUELLAR Attending Clinician Unavailable LEIGH ANN MOSS Admitting Clinician Unavailable JONATHAN CUELLAR Admitting Clinician Unavailable Payers Payer Name Policy Type Policy Number Effective Date Expiration Date S jo [employer] MEDICARE HMO [id number] 2021 POS 00:00:00 Problems This patient has no known problems. Allergies, Adverse Reactions, Alerts Allergy Allergy Status Severity Reaction(s) Onset Inactive Treating Comm ents Source Name Type Date Date Clinician NO KNOWN Allergy Active [facility] Medications This patient has no known medications. Vital Signs Vital Name Observation Time Observation Value Comments Source WEIGHT 2020-07-09 04:00:00 83.416 kg WEIGHT 2020-07-08 03:00:00 83.462 kg WEIGHT 2020-07-07 05:21:00 84.142 kg WEIGHT 2020-07-06 06:13:00 85.14 kg WEIGHT 2020-07-05 04:00:00 83.915 kg WEIGHT 2020-07-04 06:00:00 84.6 kg WEIGHT 2020-07-03 07:00:00 83.9 kg WEIGHT 2020-07-02 10:00:00 84.777 kg WEIGHT 2020-07-01 07:58:00 83.7 kg WEIGHT 2020-06-27 08:23:00 84.9 kg HEIGHT 2020-06-27 01:42:00 167.6 cm WEIGHT 2020-06-27 01:42:00 84.46 kg HEIGHT 2021-11-14 09:29:00 167.6 cm WEIGHT 2021-11-14 09:29:00 84.1 kg HEIGHT 2021-11-14 09:29:00 167.6 cm WEIGHT 2021-11-14 09:29:00 84.1 kg HEIGHT 2021-11-08 11:15:00 167.6 cm WEIGHT 2021-11-08 11:15:00 85.276 kg HEIGHT 2021-11-08 11:15:00 167.6 cm WEIGHT 2021-11-08 11:15:00 85.276 kg WEIGHT 2020-07-09 04:00:00 83.416 kg WEIGHT 2020-07-08 03:00:00 83.462 kg WEIGHT 2020-07-07 05:21:00 84.142 kg WEIGHT 2020-07-06 06:13:00 85.14 kg WEIGHT 2020-07-05 04:00:00 83.915 kg WEIGHT 2020-07-04 06:00:00 84.6 kg WEIGHT 2020-07-03 07:00:00 83.9 kg WEIGHT 2020-07-02 10:00:00 84.777 kg WEIGHT 2020-07-01 07:58:00 83.7 kg WEIGHT 2020-06-27 08:23:00 84.9 kg HEIGHT 2020-06-27 01:42:00 167.6 cm WEIGHT 2020-06-27 01:42:00 84.46 kg Procedures This patient has no known procedures. Encounters Start End Encounter Admission Attending Care Care Encounter Source Date/Time Date/Time Type Type Clinicians Facility Department ID 2020-06-27 Inpatient DONELL MOSS [facility] Cardiology [id number] SLE 01:21:00 BIMAL 2021-11-14 2021-11-15 Inpatient MUKESH VICENTE [facility] Surgery [id number] SLEH 07:36:00 10:55:00 ADRIAN 2021-11-08 2021-11-08 [facility] [id number] SLE 11:13:38 11:13:38 IFEOMA Results Test Description Test Time Test Comments Results Result Comments Source POCT-GLUCOSE METER 2021-11-15 07:41:19 Test Item Value Reference Range Interpretation Comme nts POC-GLUCOSE METER (BEAKER) 149 mg/dL 70-110 H : TESTED AT [facility] [address] (test code = 1538) [place], [address]: Plant Engineering Supervisor/Techni payton ID = [id number] for Frandy Little BASIC METABOLIC [id number] 06:10:40 Test Item Value Reference Range Interpretation Comments SODIUM (BEAKER) 137 meq/L 136-145 (test code = 381) POTASSIUM (BEAKER) 4.2 meq/L 3.5-5.1 Specimen slightly (test code = 379) hemolyzed CHLORIDE (BEAKER) 104 meq/L 98-107 (test code = 382) CO2 (BEAKER) (test 25 meq/L 22-29 code = 355) BLOOD UREA NITROGEN 11 mg/dL 7-21 (BEAKER) (test code = 354) CREATININE (BEAKER) 0.85 mg/dL 0.57-1.25 Specimen slightly (test code = 358) hemolyzed GLUCOSE RANDOM 121 mg/dL 70-105 H (BEAKER) (test code = 652) CALCIUM (BEAKER) 8.5 mg/dL 8.4-10.2 (test code = 697) EGFR (BEAKER) (test 89 mL/min/1.73 ESTIMA DAYLIN GFR IS code = 1092) sq m NOT ACCURATE CREATININE CLEARANCE IN PREDICTING GLOMERULAR FILTRATION RATE . ESTIMATED GFR I S NOT APPLICABLE FOR DIALYSIS PATIEN TS. Plant Engineering Supervisor ID - PIAYA LCBC W/PLT COUNT & AUTO [id number] 05:10:47 Test Item Value Reference Range Interpretation Comments WHITE BLOOD CELL COUNT (BEAKER) 12.9 K/ L 3.5-10.5 H (test code = 775) RED BLOOD CELL COUNT (BEAKER) 4.45 M/ L 4.63-6.08 L (test code = 761) HEMOGLOBIN (BEAKER) (test code = 13.1 GM/DL 13.7-17.5 L 410) HEMATOCRIT (BEAKER) (test code = 39.8 % 40.1-51.0 L 411) MEAN CORPUSCULAR VOLUME (BEAKER) 89.4 fL 79.0-92.2 (test code = 753) MEAN CORPUSCULAR HEMOGLOBIN 29.4 pg 25.7-32.2 (BEAKER) (test code = 751) MEAN CORPUSCULAR HEMOGLOBIN CONC 32.9 GM/DL 32.3-36.5 (BEAKER) (test code = 752) RED CELL DISTRIBUTION WIDTH 13.5 % 11.6-14.4 (BEAKER) (test code = 412) PLATELET COUNT (BEAKER) (test 153 K/CU MM 150-450 code = 756) MEAN PLATELET VOLUME (BEAKER) 11.7 fL 9.4-12.4 (test code = 754) NUCLEATED RED BLOOD CELLS 0 /100 WBC 0-0 (BEAKER) (test code = 413) NEUTROPHILS RELATIVE PERCENT 58 % (BEAKER) (test code = 429) LYMPHOCYTES RELATIVE PERCENT 33 % (BEAKER) (test code = 430) MONOCYTES RELATIVE PERCENT 8 % (BEAKER) (test code = 431) EOSINOPHILS RELATIVE PERCENT 0 % (BEAKER) (test code = 432) BASOPHILS RELATIVE PERCENT 0 % (BEAKER) (test code = 437) NEUTROPHILS ABSOLUTE COUNT 7.51 K/ L 1.78-5.38 H (BEAKER) (test code = 670) LYMPHOCYTES ABSOLUTE COUNT 4.23 K/ L 1.32-3.57 H (BEAKER) (test code = 414) MONOCYTES ABSOLUTE COUNT (BEAKER) 1.01 K/ L 0.30-0.82 H (test code = 415) EOSINOPHILS ABSOLUTE COUNT 0.04 K/ L 0.04-0.54 (BEAKER) (test code = 416) BASOPHILS ABSOLUTE COUNT (BEAKER) 0.05 K/ L 0.01-0.08 (test code = 417) IMMATURE GRANULOCYTES-RELATIVE 0 % 0-1 PERCENT (BEAKER) (test code = 2801) CALCIUM, [id number] 15:35:38 Test Item Value Reference Range Interpretation Comments CALCIUM IONIZED (BEAKER) (test 1.09 mmol/L 1.12-1.27 L code = 698) PH, BLOOD (BEAKER) (test code = 7.35 1810) GLUCOSE-STAT [id number] 15:35:27 Test Item Value Reference Range Interpretation Comments GLUCOSE RANDOM (BEAKER) (test code 131 mg/dL 70-110 H = 652) HGB/HCT (H&H) - STAT [id number] 15:34:51 Test Item Value Reference Range Interpretation Comments HEMOGLOBIN (BEAKER) (test code = 14.1 GM/DL 13.0-16.8 410) HEMATOCRIT (BEAKER) (test code = 41.0 % 40.0-50.0 411) SODIUM NA-STAT [id number] 15:34:50 Test Item Value Reference Range Interpretation Comments SODIUM (BEAKER) (test code = 381) 140 meq/L 136-145 POTASSIUM-STAT [id number] 15:34:50 Test Item Value Reference Range Interpretation Comments POTASSIUM (BEAKER) (test code = 3.9 meq/L 3.6-5.5 379) [id number] 14:54:46 Test Item Value Reference Range Interpretation Comments ACTIVATED CLOTTING TIME 303 sec : 74 -137 seconds, (BEAKER) (test code = Shawna ne: TESTED AT 441) [facility] [address] [facility], [address]: Plant Engineering Supervisor/Techni payton ID = [id number] for CA STRO, ERVIN POCT-GLUCOSE [id number] 09:44:25 Test Item Value Reference Range Interpretation Comments POC-GLUCOSE METER 146 mg/dL 70-110 H : [facility] (BEAKER) (test code = [facility], 1538) [address]: Plant Engineering Supervisor/Techni payton ID = [id number] for GR EDISON ZALDIVAR BASIC METABOLIC [id number] 13:13:51 Test Item Value Reference Range Interpretation Comments SODIUM (BEAKER) 140 meq/L 136-145 (test code = 381) POTASSIUM (BEAKER) 5.2 meq/L 3.5-5.1 H (test code = 379) CHLORIDE (BEAKER) 103 meq/L 98-107 (test code = 382) CO2 (BEAKER) (test 28 meq/L 22-29 code = 355) BLOOD UREA NITROGEN 12 mg/dL 7-21 (BEAKER) (test code = 354) CREATININE (BEAKER) 0.86 mg/dL 0.57-1.25 (test code = 358) GLUCOSE RANDOM 117 mg/dL 70-105 H (BEAKER) (test code = 652) CALCIUM (BEAKER) 9.6 mg/dL 8.4-10.2 (test code = 697) EGFR (BEAKER) (test 88 mL/min/1.73 ESTIMA DAYLIN GFR IS code = 1092) sq m NOT ACCURATE CREATININE CLEARANCE IN PREDICTING GLOMERULAR FILTRATION RATE . ESTIMATED GFR I S NOT APPLICABLE FOR DIALYSIS PATIEN TS. Plant Engineering Supervisor ID - [id number] 13:11:08 Test Item Value Reference Range Interpretation Comments PARTIAL THROMBOPLASTIN TIME 27.3 seconds 22.5-36.0 (BEAKER) (test code = 760) PROTHROMBIN [id number] 13:10:28 Test Item Value Reference Range Interpretation Comments PROTIME (BEAKER) 14.7 seconds 11.9-14.2 H (test code = 759) INR (BEAKER) (test 1.17 See_Comment [Automat ed message] code = 370) The system [employer] generated this result transmitted ref erence range: <=5.90. The reference range was not used to int erpret this result as normal/abnormal . RECOMMENDED COUMADIN/WARFARIN INR THERAPY RANGESSTANDARD DOSE: 2.0 - 3.0 Includes: PROPHYLAXIS forvenous thrombosis, systemic embolization; TREATMENT for venous thrombosis and/or pulmonary embolus.HIGH RISK: Target INR is 2.5-3.5 for patients with mechanical heart valves.CBC W/PLT COUNT & AUTO DIFFERENTIAL 2021-11-08 13:07:54 Test Item Value Reference Range Interpretation Comments WHITE BLOOD CELL COUNT (BEAKER) 9.9 K/ L 3.5-10.5 (test code = 775) RED BLOOD CELL COUNT (BEAKER) 5.16 M/ L 4.63-6.08 (test code = 761) HEMOGLOBIN (BEAKER) (test code = 15.3 GM/DL 13.7-17.5 410) HEMATOCRIT (BEAKER) (test code = 45.9 % 40.1-51.0 411) MEAN CORPUSCULAR VOLUME (BEAKER) 89.0 fL 79.0-92.2 (test code = 753) MEAN CORPUSCULAR HEMOGLOBIN 29.7 pg 25.7-32.2 (BEAKER) (test code = 751) MEAN CORPUSCULAR HEMOGLOBIN CONC 33.3 GM/DL 32.3-36.5 (BEAKER) (test code = 752) RED CELL DISTRIBUTION WIDTH 13.2 % 11.6-14.4 (BEAKER) (test code = 412) PLATELET COUNT (BEAKER) (test 164 K/CU MM 150-450 code = 756) MEAN PLATELET VOLUME (BEAKER) 12.2 fL 9.4-12.4 (test code = 754) NUCLEATED RED BLOOD CELLS 0 /100 WBC 0-0 (BEAKER) (test code = 413) NEUTROPHILS RELATIVE PERCENT 47 % (BEAKER) (test code = 429) LYMPHOCYTES RELATIVE PERCENT 43 % (BEAKER) (test code = 430) MONOCYTES RELATIVE PERCENT 7 % (BEAKER) (test code = 431) EOSINOPHILS RELATIVE PERCENT 2 % (BEAKER) (test code = 432) BASOPHILS RELATIVE PERCENT 1 % (BEAKER) (test code = 437) NEUTROPHILS ABSOLUTE COUNT 4.70 K/ L 1.78-5.38 (BEAKER) (test code = 670) LYMPHOCYTES ABSOLUTE COUNT 4.28 K/ L 1.32-3.57 H (BEAKER) (test code = 414) MONOCYTES ABSOLUTE COUNT (BEAKER) 0.70 K/ L 0.30-0.82 (test code = 415) EOSINOPHILS ABSOLUTE COUNT 0.17 K/ L 0.04-0.54 (BEAKER) (test code = 416) BASOPHILS ABSOLUTE COUNT (BEAKER) 0.06 K/ L 0.01-0.08 (test code = 417) IMMATURE GRANULOCYTES-RELATIVE 0 % 0-1 PERCENT (BEAKER) (test code = 2801) SARS-COV2/RT-PCR ([facility])2020-07-09 13:04:00 Test Item Value Reference Range Interpretation Comments SARS-COV2/RT-PCR (test Negative Not Detected, Negative, code = 7114333) See external report for linked test SARS-COV-2 PERFORMING LAB [facility] (test code = 2467984) Negative result for this test determines that SARS-CoV-2 RNA was not present in the specimen above the Limit of Detection (LOD). However, Negative results do not preclude SARS-CoV-2 infection and should not be used as the sole basis for treatment or patient management decisions. Negative results mustbe combined with clinical observations, patient history, and epidemiological information. A false negative result may occur if a specimen is improperly collected, transported or handled. A false negative result should be considered if patient's recent exposures or clinical presentation indicate that COVID-19 (SARS-CoV-2) is likely and diagnostic tests for other causes of illness are negative. Re-testing should be considered in cases of suspected false negatives.The limit of detection for this assay is 800 copies/mL.This SARS CoV-2 test is a real-time RT-PCR test intended for the qualitative detection of nucleic acid from SARS-CoV-2 in a nasopharyngeal swab specimen collected from individuals susp ected of COVID-19 by their healthcare provider.This test has not been Food and Drug Administration (FDA) cleared or approved. This is a modified version of an approved Emergency Use Authorization (EUA) and is in the process of review by the FDA. Once authorized by the FDA, the issued EUA will be effective until the declaration that circumstances exist justifying the authorization of the emergency use of in vitro diagnostic tests for detection and/or diagnosis of COVID-19 is terminated under Section 564(b)(2) of the Act or the EUA is revoked under Section 564(g) of the Act.Fact Sheet for Healthcare Providers:https://www.[employer]/sites/default/files/product/documents/Fact_Shee w_DB_Kidkacbql_Bcgs_EWUW-MuT-0.pdfFact Sheet for Healthcare Patients:https://www.[employer]/sites/default/files/product/ documents/Ndmy_Vjssw_Sxwkjtuq_Hjqs_GXAM-TdQ-8.pdfPerforming Laboratory:[facility], [place] [address]PVSX-DSIMMXH METER 2020-07-09 12:22:00 Test Item Value Reference Range Interpretation Comments POC-GLUCOSE METER 131 mg/dL 70-110 H : TESTED A T [facility] 67[address] (BEAKER) (test code = N[place] Membreno [facility], 1538) [address]: Plant Engineering Supervisor/Techni payton ID = [id number] for BAIRON JONES BASIC METABOLIC [id number] 08:21:00 Test Item Value Reference Range Interpretation Comments SODIUM (BEAKER) 134 meq/L 136-145 L (test code = 381) POTASSIUM (BEAKER) 3.6 meq/L 3.5-5.1 (test code = 379) CHLORIDE (BEAKER) 97 meq/L 98-107 L (test code = 382) CO2 (BEAKER) (test 27 meq/L 22-29 code = 355) BLOOD UREA NITROGEN 16 mg/dL 7-21 (BEAKER) (test code = 354) CREATININE (BEAKER) 0.75 mg/dL 0.57-1.25 (test code = 358) GLUCOSE RANDOM 114 mg/dL 70-105 H (BEAKER) (test code = 652) CALCIUM (BEAKER) 8.1 mg/dL 8.4-10.2 L (test code = 697) EGFR (BEAKER) (test 104 mL/min/1.73 ESTIM ATED GFR IS code = 1092) sq m NOT ACCURATE CREATININE CLEARANCE IN PREDICTING GLOMERULAR FILTRATION RATE . ESTIMATED GFR I S NOT APPLICABLE FOR DIALYSIS PATIEN TS. Plant Engineering Supervisor ID - AMI LPOCT-GLUCOSE [id number] 07:09:00 Test Item Value Reference Range Interpretation Comments POC-GLUCOSE METER 128 mg/dL 70-110 H : TESTED A T [facility] 6720 (BEAKER) (test code = [facility], 1538) [address]: Plant Engineering Supervisor/Techni payton ID = [id number] for KIJeseHAKEKATTIL, BAIRON POCT-GLUCOSE [id number] 21:35:00 Test Item Value Reference Range Interpretation Comments POC-GLUCOSE METER 139 mg/dL 70-110 H : TESTED A T [facility] 6720 (BEAKER) (test code = [facility], 1538) [address]: Plant Engineering Supervisor/Techni payton ID = [id number] for AKIRA NEFTALYCHICOCORINNA POCT-GLUCOSE [id number] 17:12:00 Test Item Value Reference Range Interpretation Comments POC-GLUCOSE METER 110 mg/dL 70-110 : TESTED A T [facility] 6720 (BEAKER) (test code = [facility], 1538) [address]: Plant Engineering Supervisor/Techni payton ID = [id number] for KIZHAKEKATTIL, BAIRON POCT-GLUCOSE [id number] 12:13:00 Test Item Value Reference Range Interpretation Comments POC-GLUCOSE METER 171 mg/dL 70-110 H : TESTED A T [facility] 6720 (BEAKER) (test code = [facility], 1538) [address]: Plant Engineering Supervisor/Techni payton ID = [id number] for KIZHAKEKATTIL, BAIRON RAD, CHEST, 1 VIEW, NON [id number] 08:26:00while patient is intubated or has chest tubes.Reason for exam:->Status post CV SurgeryShould thisbe performed at the bedside?->Yes [facility]ERT : 1950 Sex: MFINAL REPORT RAD, CHEST, 1 VIEW, NON DEPT INDICATION: Status post CV Surgery COMPARISON: July 06, 2020 FINDINGS: Portable frontal view of the chest. IMPRESSION: Support Lines: None Lungs and pleura: No new consolidation or effusion. No pneumothorax.Heart and mediastinum: Stable contours. Stable surgical changes.Additional findings: None. Signed: JR Fraser Robert MDReport Verified Date/Time: 07/08/2020 08:26:53 Reading Location: [address] Neuro Reading Room POCT-GLUCOSE [id number] 08:13:00 Test Item Value Reference Range Interpretation Comments POC-GLUCOSE METER 129 mg/dL 70-110 H : TESTED A T [facility] 6720 (BEAKER) (test code = [facility] [place], 1538) [address]: Plant Engineering Supervisor/Techni payton ID = [id number] for BAIRON JONES BASIC METABOLIC [id number] 05:19:00 Test Item Value Reference Range Interpretation Comments SODIUM (BEAKER) 134 meq/L 136-145 L (test code = 381) POTASSIUM (BEAKER) 3.7 meq/L 3.5-5.1 (test code = 379) CHLORIDE (BEAKER) 97 meq/L 98-107 L (test code = 382) CO2 (BEAKER) (test 30 meq/L 22-29 H code = 355) BLOOD UREA NITROGEN 26 mg/dL 7-21 H (BEAKER) (test code = 354) CREATININE (BEAKER) 0.85 mg/dL 0.57-1.25 (test code = 358) GLUCOSE RANDOM 121 mg/dL 70-105 H (BEAKER) (test code = 652) CALCIUM (BEAKER) 8.2 mg/dL 8.4-10.2 L (test code = 697) EGFR (BEAKER) (test 90 mL/min/1.73 ESTIMA DAYLIN GFR IS code = 1092) sq m NOT ACCURATE CREATININE CLEARANCE IN PREDICTING GLOMERULAR FILTRATION RATE . ESTIMATED GFR I S NOT APPLICABLE FOR DIALYSIS PATIEN TS. Plant Engineering Supervisor ID - EDASIPOCT-GLUCOSE [id number] 21:23:00 Test Item Value Reference Range Interpretation Comments POC-GLUCOSE METER 169 mg/dL 70-110 H : TESTED A T [facility] 6720 (BEAQUA PURE) (test code = [facility], [facility]) [address]: Plant Engineering Supervisor/Techni payton ID = [id number] for PI NEFTALYCHICOCORINNA POCT-GLUCOSE [id number] 17:10:00 Test Item Value Reference Range Interpretation Comments POC-GLUCOSE METER 135 mg/dL 70-110 H : TESTED A T [facility] 6720 (BEAKER) (test code = [facility], 153) [address]: Plant Engineering Supervisor/Techni payton ID = [id number] for KIZHAKEKATTIL, BAIRON POCT-GLUCOSE [id number] 12:17:00 Test Item Value Reference Range Interpretation Comments POC-GLUCOSE METER 164 mg/dL 70-110 H : TESTED A T [facility] 6720 (BEAKER) (test code = [facility], 153) [address]: Plant Engineering Supervisor/Techni payton ID = [id number] for KIZHAKEKATTIL, BAIRON POCT-GLUCOSE [id number] 07:24:00 Test Item Value Reference Range Interpretation Comments POC-GLUCOSE METER 146 mg/dL 70-110 H : TESTED A T [facility] 6720 (BEAKER) (test code = [facility], 1538) [address]: Plant Engineering Supervisor/Techni payton ID = [id number] for KIZHAKEKATTIL, BAIRON BASIC METABOLIC [id number] 06:17:00 Test Item Value Reference Range Interpretation Comments SODIUM (BEAKER) 132 meq/L 136-145 L (test code = 381) POTASSIUM (BEAKER) 3.7 meq/L 3.5-5.1 (test code = 379) CHLORIDE (BEAKER) 95 meq/L 98-107 L (test code = 382) CO2 (BEAKER) (test 29 meq/L 22-29 code = 355) BLOOD UREA NITROGEN 26 mg/dL 7-21 H (BEAKER) (test code = 354) CREATININE (BEAKER) 0.94 mg/dL 0.57-1.25 (test code = 358) GLUCOSE RANDOM 126 mg/dL 70-105 H (BEAKER) (test code = 652) CALCIUM (BEAKER) 8.5 mg/dL 8.4-10.2 (test code = 697) EGFR (BEAKER) (test 80 mL/min/1.73 ESTIMA DAYLIN GFR IS code = 1092) sq m NOT ACCURATE CREATININE CLEARANCE IN PREDICTING GLOMERULAR FILTRATION RATE . ESTIMATED GFR I S NOT APPLICABLE FOR DIALYSIS PATIEN TS. Plant Engineering Supervisor ID - [id number] 06:17:00 Test Item Value Reference Range Interpretation Comments MAGNESIUM (BEAKER) (test code = 2.3 mg/dL 1.6-2.6 627) Plant Engineering Supervisor ID - [id number] 06:17:00 Test Item Value Reference Range Interpretation Comments PHOSPHORUS (BEAKER) (test code = 3.4 mg/dL 2.3-4.7 604) Plant Engineering Supervisor ID - EDASICBC W/PLT COUNT & AUTO [id number] 05:40:00 Test Item Value Reference Range Interpretation Comments WHITE BLOOD CELL COUNT (BEAKER) 15.5 K/ L 3.5-10.5 H (test code = 775) RED BLOOD CELL COUNT (BEAKER) 3.29 M/ L 4.63-6.08 L (test code = 761) HEMOGLOBIN (BEAKER) (test code = 9.7 GM/DL 13.7-17.5 L 410) HEMATOCRIT (BEAKER) (test code = 28.9 % 40.1-51.0 L 411) MEAN CORPUSCULAR VOLUME (BEAKER) 87.8 fL 79.0-92.2 (test code = 753) MEAN CORPUSCULAR HEMOGLOBIN 29.5 pg 25.7-32.2 (BEAKER) (test code = 751) MEAN CORPUSCULAR HEMOGLOBIN CONC 33.6 GM/DL 32.3-36.5 (BEAKER) (test code = 752) RED CELL DISTRIBUTION WIDTH 13.0 % 11.6-14.4 (BEAKER) (test code = 412) PLATELET COUNT (BEAKER) (test 196 K/CU MM 150-450 code = 756) MEAN PLATELET VOLUME (BEAKER) 11.6 fL 9.4-12.4 (test code = 754) NUCLEATED RED BLOOD CELLS 0 /100 WBC 0-0 (BEAKER) (test code = 413) NEUTROPHILS RELATIVE PERCENT 67 % (BEAKER) (test code = 429) LYMPHOCYTES RELATIVE PERCENT 22 % (BEAKER) (test code = 430) MONOCYTES RELATIVE PERCENT 8 % (BEAKER) (test code = 431) EOSINOPHILS RELATIVE PERCENT 2 % (BEAKER) (test code = 432) BASOPHILS RELATIVE PERCENT 0 % (BEAKER) (test code = 437) NEUTROPHILS ABSOLUTE COUNT 10.46 K/ L 1.78-5.38 H (BEAKER) (test code = 670) LYMPHOCYTES ABSOLUTE COUNT 3.39 K/ L 1.32-3.57 (BEAKER) (test code = 414) MONOCYTES ABSOLUTE COUNT (BEAKER) 1.18 K/ L 0.30-0.82 H (test code = 415) EOSINOPHILS ABSOLUTE COUNT 0.38 K/ L 0.04-0.54 (BEAKER) (test code = 416) BASOPHILS ABSOLUTE COUNT (BEAKER) 0.04 K/ L 0.01-0.08 (test code = 417) IMMATURE GRANULOCYTES-RELATIVE 1 % 0-1 PERCENT (BEAKER) (test code = 2801) CALCIUM, [id number] 05:25:00 Test Item Value Reference Range Interpretation Comments CALCIUM IONIZED (BEAKER) (test 1.10 mmol/L 1.12-1.27 L code = 698) PH, BLOOD (BEAKER) (test code = 7.47 1810) POCT-GLUCOSE [id number] 21:24:00 Test Item Value Reference Range Interpretation Comments POC-GLUCOSE METER 168 mg/dL 70-110 H : TESTED A T [facility] 6720 (BEAKER) (test code = [place] Membreno [facility], 1538) [address]: Plant Engineering Supervisor/Techni payton ID = [id number] for FI MORENO RHOADES POCT-GLUCOSE [id number] 16:11:00 Test Item Value Reference Range Interpretation Comments POC-GLUCOSE METER 165 mg/dL 70-110 H : TESTED A T [facility] 6720 [facility] (test code = [facility] Tem[place] [facility], 1538) [address]: Plant Engineering Supervisor/Techni payton ID = [id number] for dAi, Tanna POCT-GLUCOSE [id number] 12:47:00 Test Item Value Reference Range Interpretation Comments POC-GLUCOSE METER 169 mg/dL 70-110 H : TESTED A T [facility] 6720 ([facility] (test code = [facility], 1538) [address]: Plant Engineering Supervisor/Techni payton ID = [id number] for Adi, Tanna RAD, CHEST, 1 VIEW, NON [id number] 09:13:00while patient is intubated or has chest tubes.Reason for exam:->Status post CV SurgeryShould thisbe performed at the bedside?->Yes [facility] : 1950 Sex: MFINAL REPORT CLINICAL HISTORY: Status post CV Surgery TECHNIQUE: 1 viewof the chest. COMPARISON: 07/05/2020 IMPRESSION: The chest tubes have been removed. There is no pneumothorax. Mild lower lung airspace opacities are unchanged. There are no significant appearing effusions. The cardiomediastinal silhouette is magnified by technique with sternotomy wires. Left clavicularplate screw fixation is again seen. Signed: Estevez, Khoa MDReport Verified Date/Time: 07/06/2020 09:13:11 Reading Location: [facility] Radiology Reading Room POCT- GLUCOSE [id number] 08:23:00 Test Item Value Reference Range Interpretation Comments POC-GLUCOSE METER 161 mg/dL 70-110 H : TESTED A T [facility] 6720 (BEAKER) (test code = [place], 1538) [address]: Plant Engineering Supervisor/Techni payton ID = [id number] for Tanna Joshi BASIC METABOLIC [id number] 07:17:00 Test Item Value Reference Range Interpretation Comments SODIUM (BEAKER) 133 meq/L 136-145 L (test code = 381) POTASSIUM (BEAKER) 4.6 meq/L 3.5-5.1 (test code = 379) CHLORIDE (BEAKER) 96 meq/L 98-107 L (test code = 382) CO2 (BEAKER) (test 28 meq/L 22-29 code = 355) BLOOD UREA NITROGEN 15 mg/dL 7-21 (BEAKER) (test code = 354) CREATININE (BEAKER) 0.94 mg/dL 0.57-1.25 (test code = 358) GLUCOSE RANDOM 167 mg/dL 70-105 H (BEAKER) (test code = 652) CALCIUM (BEAKER) 8.5 mg/dL 8.4-10.2 (test code = 697) EGFR (BEAKER) (test 80 mL/min/1.73 ESTIMA DAYLIN GFR IS code = 1092) sq m NOT ACCURATE CREATININE CLEARANCE IN PREDICTING GLOMERULAR FILTRATION RATE . ESTIMATED GFR I S NOT APPLICABLE FOR DIALYSIS PATIEN TS. Plant Engineering Supervisor ID - PISOWMYA [id number] 07:17:00 Test Item Value Reference Range Interpretation Comments MAGNESIUM (BEAKER) (test code = 2.0 mg/dL 1.6-2.6 627) Plant Engineering Supervisor ID - [id number] [id number] 07:17:00 Test Item Value Reference Range Interpretation Comments PHOSPHORUS (BEAKER) (test code = 2.3 mg/dL 2.3-4.7 604) Plant Engineering Supervisor ID - PISOWMYA LCBC W/PLT COUNT & AUTO [id number] 06:17:00 Test Item Value Reference Range Interpretation Comments WHITE BLOOD CELL COUNT (BEAKER) 17.0 K/ L 3.5-10.5 H (test code = 775) RED BLOOD CELL COUNT (BEAKER) 3.33 M/ L 4.63-6.08 L (test code = 761) HEMOGLOBIN (BEAKER) (test code = 9.8 GM/DL 13.7-17.5 L 410) HEMATOCRIT (BEAKER) (test code = 29.7 % 40.1-51.0 L 411) MEAN CORPUSCULAR VOLUME (BEAKER) 89.2 fL 79.0-92.2 (test code = 753) MEAN CORPUSCULAR HEMOGLOBIN 29.4 pg 25.7-32.2 (BEAKER) (test code = 751) MEAN CORPUSCULAR HEMOGLOBIN CONC 33.0 GM/DL 32.3-36.5 (BEAKER) (test code = 752) RED CELL DISTRIBUTION WIDTH 13.0 % 11.6-14.4 (BEAKER) (test code = 412) PLATELET COUNT (BEAKER) (test 148 K/CU MM 150-450 L code = 756) MEAN PLATELET VOLUME (BEAKER) 11.5 fL 9.4-12.4 (test code = 754) NUCLEATED RED BLOOD CELLS 0 /100 WBC 0-0 (BEAKER) (test code = 413) NEUTROPHILS RELATIVE PERCENT 83 % (BEAKER) (test code = 429) LYMPHOCYTES RELATIVE PERCENT 8 % (BEAKER) (test code = 430) MONOCYTES RELATIVE PERCENT 7 % (BEAKER) (test code = 431) EOSINOPHILS RELATIVE PERCENT 1 % (BEAKER) (test code = 432) BASOPHILS RELATIVE PERCENT 0 % (BEAKER) (test code = 437) NEUTROPHILS ABSOLUTE COUNT 14.10 K/ L 1.78-5.38 H (BEAKER) (test code = 670) LYMPHOCYTES ABSOLUTE COUNT 1.43 K/ L 1.32-3.57 (BEAKER) (test code = 414) MONOCYTES ABSOLUTE COUNT (BEAKER) 1.23 K/ L 0.30-0.82 H (test code = 415) EOSINOPHILS ABSOLUTE COUNT 0.13 K/ L 0.04-0.54 (BEAKER) (test code = 416) BASOPHILS ABSOLUTE COUNT (BEAKER) 0.03 K/ L 0.01-0.08 (test code = 417) IMMATURE GRANULOCYTES-RELATIVE 1 % 0-1 PERCENT (BEAKER) (test code = 2801) CALCIUM, [id number] 06:07:00 Test Item Value Reference Range Interpretation Comments CALCIUM IONIZED (BEAKER) (test 1.11 mmol/L 1.12-1.27 L code = 698) PH, BLOOD (BEAKER) (test code = 7.40 1810) POCT-GLUCOSE [id number] 21:22:00 Test Item Value Reference Range Interpretation Comments POC-GLUCOSE METER 178 mg/dL 70-110 H : TESTED A T [facility] 6720 (BEAKER) (test code = [facility], 1538) [address]: Plant Engineering Supervisor/Techni payton ID = [id number] for MORENO BEAVER POCT-GLUCOSE [id number] 17:55:00 Test Item Value Reference Range Interpretation Comments POC-GLUCOSE METER 164 mg/dL 70-110 H : TESTED A T [facility] 6720 (BEAKER) (test code = [facility] [employer] [facility], 1538) 960[address]: Plant Engineering Supervisor/Techni payton ID = [id number] for BENJI BEDOLLA POCT-GLUCOSE [id number] 12:44:00 Test Item Value Reference Range Interpretation Comments POC-GLUCOSE METER 182 mg/dL 70-110 H : TESTED A T [facility] 6720 (BEAKER) (test code = [facility] [employer] [facility], 1538) 01327: Plant Engineering Supervisor/Techni payton ID = [id number] for BAIRON JONES RAD, CHEST, 1 VIEW, NON [id number] 08:16:00while patient is intubated or has chest tubes.Reason for exam:->Status post CV SurgeryShould thisbe performed at the bedside?->Yes [facility] : 1950 Sex: MFINAL REPORT CLINICAL HISTORY: Status post CV Surgery TECHNIQUE: 1 viewof the chest. COMPARISON: 07/04/2020 IMPRESSION: The ETT in right central line have been removed. Themidline and left chest tubes remain. There is no pneumothorax. Mild left asymmetric lung opacities are unchanged. There is no significant pleural fluid. The cardiomediastinal silhouette is magnified by technique with sternotomy wires. Signed: Khoa Estevez MDReport Verified Date/Time: 07/05/2020 08:16:28 Reading Location: [facility] Radiology Reading Room BASIC METABOLIC [id number] 07:38:00 Test Item Value Reference Range Interpretation Comments SODIUM (BEAKER) 134 meq/L 136-145 L (test code = 381) POTASSIUM (BEAKER) 4.0 meq/L 3.5-5.1 (test code = 379) CHLORIDE (BEAKER) 100 meq/L 98-107 (test code = 382) CO2 (BEAKER) (test 27 meq/L 22-29 code = 355) BLOOD UREA NITROGEN 10 mg/dL 7-21 (BEAKER) (test code = 354) CREATININE (BEAKER) 0.86 mg/dL 0.57-1.25 (test code = 358) GLUCOSE RANDOM 157 mg/dL 70-105 H (BEAKER) (test code = 652) CALCIUM (BEAKER) 8.3 mg/dL 8.4-10.2 L (test code = 697) EGFR (BEAKER) (test 89 mL/min/1.73 ESTIMA DAYLIN GFR IS code = 1092) sq m NOT ACCURATE CREATININE CLEARANCE IN PREDICTING GLOMERULAR FILTRATION RATE . ESTIMATED GFR I S NOT APPLICABLE FOR DIALYSIS PATIEN TS. Plant Engineering Supervisor ID - [id number] 07:38:00 Test Item Value Reference Range Interpretation Comments MAGNESIUM (BEAKER) (test code = 1.9 mg/dL 1.6-2.6 627) Plant Engineering Supervisor ID - [id number] 07:38:00 Test Item Value Reference Range Interpretation Comments PHOSPHORUS (BEAKER) (test code = 2.3 mg/dL 2.3-4.7 604) Plant Engineering Supervisor ID - ANILAPOCT-GLUCOSE [id number] 07:27:00 Test Item Value Reference Range Interpretation Comments POC-GLUCOSE METER 160 mg/dL 70-110 H : TESTED A T [facility] 6720 (BEAKER) (test code = [place], 1538) [address]: Plant Engineering Supervisor/Techni payton ID = [id number] for BENJI BEDOLLA PROTHROMBIN [id number] 07:13:00 Test Item Value Reference Range Interpretation Comments PROTIME (BEAKER) (test code = 19.1 seconds 11.9-14.2 H 759) INR (BEAKER) (test code = 370) 1.65 <=5.90 Effective 11/18/2018: PT Reference Range ChangeNew: 11.9-14.2 Previous: 11.7- 14.7RECOMMENDED COUMADIN/WARFARIN INR THERAPY RANGESSTANDARD DOSE: 2.0-3.0 Includes: PROPHYLAXIS for venous thrombosis, systemic embolization; TREATMENT for venous thrombosis and/or pulmonary embolus.HIGH RISK: Target INR is2.5-3.5 for patients wiht mechanical heart valves.CBC W/PLT COUNT & AUTO [id number] 07:04:00 Test Item Value Reference Range Interpretation Comments WHITE BLOOD CELL COUNT (BEAKER) 17.4 K/ L 3.5-10.5 H (test code = 775) RED BLOOD CELL COUNT (BEAKER) 3.42 M/ L 4.63-6.08 L (test code = 761) HEMOGLOBIN (BEAKER) (test code = 10.1 GM/DL 13.7-17.5 L 410) HEMATOCRIT (BEAKER) (test code = 30.1 % 40.1-51.0 L 411) MEAN CORPUSCULAR VOLUME (BEAKER) 88.0 fL 79.0-92.2 (test code = 753) MEAN CORPUSCULAR HEMOGLOBIN 29.5 pg 25.7-32.2 (BEAKER) (test code = 751) MEAN CORPUSCULAR HEMOGLOBIN CONC 33.6 GM/DL 32.3-36.5 (BEAKER) (test code = 752) RED CELL DISTRIBUTION WIDTH 13.2 % 11.6-14.4 (BEAKER) (test code = 412) PLATELET COUNT (BEAKER) (test 137 K/CU MM 150-450 L code = 756) MEAN PLATELET VOLUME (BEAKER) 12.5 fL 9.4-12.4 H (test code = 754) NUCLEATED RED BLOOD CELLS 0 /100 WBC 0-0 (BEAKER) (test code = 413) NEUTROPHILS RELATIVE PERCENT 80 % (BEAKER) (test code = 429) LYMPHOCYTES RELATIVE PERCENT 11 % (BEAKER) (test code = 430) MONOCYTES RELATIVE PERCENT 8 % (BEAKER) (test code = 431) EOSINOPHILS RELATIVE PERCENT 0 % (BEAKER) (test code = 432) BASOPHILS RELATIVE PERCENT 0 % (BEAKER) (test code = 437) NEUTROPHILS ABSOLUTE COUNT 13.87 K/ L 1.78-5.38 H (BEAKER) (test code = 670) LYMPHOCYTES ABSOLUTE COUNT 1.95 K/ L 1.32-3.57 (BEAKER) (test code = 414) MONOCYTES ABSOLUTE COUNT (BEAKER) 1.39 K/ L 0.30-0.82 H (test code = 415) EOSINOPHILS ABSOLUTE COUNT 0.01 K/ L 0.04-0.54 L (BEAKER) (test code = 416) BASOPHILS ABSOLUTE COUNT (BEAKER) 0.03 K/ L 0.01-0.08 (test code = 417) IMMATURE GRANULOCYTES-RELATIVE 1 % 0-1 PERCENT (BEAKER) (test code = 2801) CALCIUM, [id number] 07:01:00 Test Item Value Reference Range Interpretation Comments CALCIUM IONIZED (BEAKER) (test 1.10 mmol/L 1.12-1.27 L code = 698) PH, BLOOD (BEAKER) (test code = 7.40 1810) POCT-GLUCOSE [id number] 20:08:00 Test Item Value Reference Range Interpretation Comments POC-GLUCOSE METER 170 mg/dL 70-110 H : TESTED Betsy Zamudio [facility] 6720 (BEAKER) (test code = [place], 1538) 98999: Plant Engineering Supervisor/Techni payton ID = [id number] for CORINNA LOZA POCT-GLUCOSE [id number] 17:34:00 Test Item Value Reference Range Interpretation Comments POC-GLUCOSE METER 185 mg/dL 70-110 H : TESTED A T [facility] 6720 (MICHAEL) (test code = [place], 1538) 17527: Plant Engineering Supervisor/Techni payton ID = [id number] for BAIRON JONES SARS-COV2/RT-PCR ([facility])2020-07-04 13:52:00 Test Item Value Reference Range Interpretation Comments SARS-COV2/RT-PCR (test Negative Not Detected, Negative, code = 3404539) See external report for linked test SARS-COV-2 PERFORMING LAB [facility] (test code = 7446374) Negative result for this test determines that SARS-CoV-2 RNA was not present in the specimen above the Limit of Detection (LOD). However, Negative results do not preclude SARS-CoV-2 infection and should not be used as the sole basis for treatment or patient management decisions. Negative results mustbe combined with clinical observations, patient history, and epidemiological information. A false negative result may occur if a specimen is improperly collected, transported or handled. A false negative result should be considered if patient's recent exposures or clinical presentation indicate that COVID-19 (SARS-CoV-2) is likely and diagnostic tests for other causes of illness are negative. Re-testing should be considered in cases of suspected false negatives.The limit of detection for this assay is 800 copies/mL.This SARS CoV-2 test is a real-time RT-PCR test intended for the qualitative detection of nucleic acid from SARS-CoV-2 in a nasopharyngeal swab specimen collected from individuals susp ected of COVID-19 by their healthcare provider.This test has not been Food and Drug Administration (FDA) cleared or approved. This is a modified version of an approved Emergency Use Authorization (EUA) and is in the process of review by the FDA. Once authorized by the FDA, the issued EUA will be effective until the declaration that circumstances exist justifying the authorization of the emergency use of in vitro diagnostic tests for detection and/or diagnosis of COVID-19 is terminated under Section 564(b)(2) of the Act or the EUA is revoked under Section 564(g) of the Act.Fact Sheet for Healthcare Providers:https://www.Noknoker.Pheed/sites/default/files/product/documents/Fact_Shee d_FI_Txcurrgcd_Msii_GJHC-AjO-0.pdfFact Sheet for Healthcare Patients:https://www.Noknoker.Pheed/sites/default/files/product/ documents/Hgyl_Oylhv_Dwndeghj_Amje_GYKI-LyE-8.pdfPerforming Laboratory:[facility], [place] [address]RZRT-[id number] METER 2020-07-04 12:36:00 Test Item Value Reference Range Interpretation Comments POC-GLUCOSE METER 233 mg/dL 70-110 H : TESTED A T [facility] 6720 (BEAKER) (test code = [facility], 1538) 48708: Plant Engineering Supervisor/Techni payton ID = [id number] for BAIRON JONES HEMOGLOBIN [id number] 09:49:00 Test Item Value Reference Range Interpretation Comments HEMOGLOBIN A1C (BEAKER) (test code = 6.1 % 4.3-6.1 368) POCT-GLUCOSE [id number] 07:51:00 Test Item Value Reference Range Interpretation Comments POC-GLUCOSE METER 104 mg/dL 70-110 : TESTED A T [facility] 6720 (BEAKER) (test code = [facility], 1538) 957[address]: Plant Engineering Supervisor/Techni payton ID = [id number] for Mana Jones RAD, CHEST, 1 VIEW, NON [id number] 06:28:00while patient is intubated or has chest tubes.Reason for exam:->Status post CV SurgeryShould thisbe performed at the bedside?->Yes [facility] : 1950 Sex: MFINAL REPORT Chest one view. Clinical history: Status post CV Surgery Comparison: Chest radiograph 07/03/2020, 8:37 PM. Technique: A single frontal view of the chest was obtained. Findings:Support lines and tubes are in satisfactory positions.The cardiomediastinal contours are stable. There are bilateral airspace and interstitial opacities, mildly decreased. There is no p leural effusion or pneumothorax. There are postsurgical changes in the left clavicle. Signed: Felix Dallaseport Verified Date/Time: 07/04/2020 06:28:38 -GLUCOSE [id number] 06:19:00 Test Item Value Reference Range Interpretation Comments POC-GLUCOSE METER 112 mg/dL 70-110 H : TESTED A T [facility] 6720 (BEAKER) (test code = [facility], 1538) 44319: Plant Engineering Supervisor/Techni payton ID = [id number] for REBECCA GARCIA BASIC METABOLIC [id number] 04:55:00 Test Item Value Reference Range Interpretation Comments SODIUM (BEAKER) 136 meq/L 136-145 (test code = 381) POTASSIUM (BEAKER) 3.9 meq/L 3.5-5.1 (test code = 379) CHLORIDE (BEAKER) 104 meq/L 98-107 (test code = 382) CO2 (BEAKER) (test 26 meq/L 22-29 code = 355) BLOOD UREA NITROGEN 11 mg/dL 7-21 (BEAKER) (test code = 354) CREATININE (BEAKER) 0.78 mg/dL 0.57-1.25 (test code = 358) GLUCOSE RANDOM 123 mg/dL 70-105 H (BEAKER) (test code = 652) CALCIUM (BEAKER) 7.6 mg/dL 8.4-10.2 L (test code = 697) EGFR (BEAKER) (test 99 mL/min/1.73 ESTIMA DAYLIN GFR IS code = 1092) sq m NOT ACCURATE CREATININE CLEARANCE IN PREDICTING GLOMERULAR FILTRATION RATE . ESTIMATED GFR I S NOT APPLICABLE FOR DIALYSIS PATIEN TS. Plant Engineering Supervisor ID - BEN [id number] 04:50:00 Test Item Value Reference Range Interpretation Comments MAGNESIUM (BEAKER) (test code = 2.2 mg/dL 1.6-2.6 627) Plant Engineering Supervisor ID - BEN [id number] 04:50:00 Test Item Value Reference Range Interpretation Comments PHOSPHORUS (BEAKER) (test code = 3.5 mg/dL 2.3-4.7 604) Plant Engineering Supervisor ID - BEN MCBC W/PLT COUNT & AUTO [id number] 04:33:00 Test Item Value Reference Range Interpretation Comments WHITE BLOOD CELL COUNT (BEAKER) 12.9 K/ L 3.5-10.5 H (test code = 775) RED BLOOD CELL COUNT (BEAKER) 3.55 M/ L 4.63-6.08 L (test code = 761) HEMOGLOBIN (BEAKER) (test code = 10.3 GM/DL 13.7-17.5 L 410) HEMATOCRIT (BEAKER) (test code = 30.4 % 40.1-51.0 L 411) MEAN CORPUSCULAR VOLUME (BEAKER) 85.6 fL 79.0-92.2 (test code = 753) MEAN CORPUSCULAR HEMOGLOBIN 29.0 pg 25.7-32.2 (BEAKER) (test code = 751) MEAN CORPUSCULAR HEMOGLOBIN CONC 33.9 GM/DL 32.3-36.5 (BEAKER) (test code = 752) RED CELL DISTRIBUTION WIDTH 12.6 % 11.6-14.4 (BEAKER) (test code = 412) PLATELET COUNT (BEAKER) (test 145 K/CU MM 150-450 L code = 756) MEAN PLATELET VOLUME (BEAKER) 11.5 fL 9.4-12.4 (test code = 754) NUCLEATED RED BLOOD CELLS 0 /100 WBC 0-0 (BEAKER) (test code = 413) NEUTROPHILS RELATIVE PERCENT 85 % (BEAKER) (test code = 429) LYMPHOCYTES RELATIVE PERCENT 9 % (BEAKER) (test code = 430) MONOCYTES RELATIVE PERCENT 6 % (BEAKER) (test code = 431) EOSINOPHILS RELATIVE PERCENT 0 % (BEAKER) (test code = 432) BASOPHILS RELATIVE PERCENT 0 % (BEAKER) (test code = 437) NEUTROPHILS ABSOLUTE COUNT 10.96 K/ L 1.78-5.38 H (BEAKER) (test code = 670) LYMPHOCYTES ABSOLUTE COUNT 1.16 K/ L 1.32-3.57 L (BEAKER) (test code = 414) MONOCYTES ABSOLUTE COUNT (BEAKER) 0.71 K/ L 0.30-0.82 (test code = 415) EOSINOPHILS ABSOLUTE COUNT 0.01 K/ L 0.04-0.54 L (BEAKER) (test code = 416) BASOPHILS ABSOLUTE COUNT (BEAKER) 0.02 K/ L 0.01-0.08 (test code = 417) IMMATURE GRANULOCYTES-RELATIVE 1 % 0-1 PERCENT (BEAKER) (test code = 2801) PROTHROMBIN [id number] 04:29:00 Test Item Value Reference Range Interpretation Comments PROTIME (BEAKER) (test code = 17.4 seconds 11.9-14.2 H 759) INR (BEAKER) (test code = 370) 1.48 <=5.90 Effective 11/18/2018: PT Reference Range ChangeNew: 11.9-14.2 Previous: 11.7- 14.7RECOMMENDED COUMADIN/WARFARIN INR THERAPY RANGESSTANDARD DOSE: 2.0-3.0 Includes: PROPHYLAXIS for venous thrombosis, systemic embolization; TREATMENT for venous thrombosis and/or pulmonary embolus.HIGH RISK: Target INR is2.5-3.5 for patients wiht mechanical heart valves.LACTIC ACID, [id number] 04:29:00 Test Item Value Reference Range Interpretation Comments LACTATE BLOOD ARTERIAL (2) 0.9 mmol/L 0.5-2.2 (BEAKER) (test code = 2874) Plant Engineering Supervisor ID - BEN [id number] 04:29:00 Test Item Value Reference Range Interpretation Comments PARTIAL THROMBOPLASTIN TIME 33.3 seconds 22.5-36.0 (BEAKER) (test code = 760) POCT-GLUCOSE [id number] 04:19:00 Test Item Value Reference Range Interpretation Comments POC-GLUCOSE METER 126 mg/dL 70-110 H : TESTED A T [facility] 6720 (BEAKER) (test code = [facility], 1538) 58438: Plant Engineering Supervisor/Techni payton ID = [id number] for AH AMAD, BARBIE OXYGEN SATURATION, [id number] 04:13:00 Test Item Value Reference Range Interpretation Comments O2 SATURATION (MEASURED) (BEAKER) 64.9 % (test code = 1455) BLOOD GAS, [id number] 04:12:00 Test Item Value Reference Range Interpretation Comments PH ARTERIAL (BEAKER) (test code = 7.45 7.35-7.45 383) PCO2 ARTERIAL (BEAKER) (test code 38 mm Hg 35-45 = 384) PO2 ARTERIAL (BEAKER) (test code = 103 mm Hg 80-90 H 385) O2 SATURATION ARTERIAL (BEAKER) 97.8 % 96.0-97.0 H (test code = 386) HCO3 ARTERIAL (BEAKER) (test code 26 mmol/L 21-29 = 388) BASE EXCESS ARTERIAL (BEAKER) 2.3 mmol/L -2.0-3.0 (test code = 387) PATIENT TEMPERATURE (BEAKER) (test 37.9 code = 1818) FIO2 (BEAKER) (test code = 1819) 36.0 POCT-GLUCOSE [id number] 01:20:00 Test Item Value Reference Range Interpretation Comments POC-GLUCOSE METER 136 mg/dL 70-110 H : TESTED A T [facility] 6720 (BEAKER) (test code = [place], 1538) [address]: Plant Engineering Supervisor/Techni payton ID = [id number] for BARBIE MANCIA BLOOD GAS, [id number] 01:19:00 Test Item Value Reference Range Interpretation Comments PH ARTERIAL (BEAKER) (test code = 7.42 7.35-7.45 383) PCO2 ARTERIAL (BEAKER) (test code 35 mm Hg 35-45 = 384) PO2 ARTERIAL (BEAKER) (test code 127 mm Hg 80-90 H = 385) O2 SATURATION ARTERIAL (BEAKER) 98.6 % 96.0-97.0 H (test code = 386) HCO3 ARTERIAL (BEAKER) (test code 22 mmol/L 21-29 = 388) BASE EXCESS ARTERIAL (BEAKER) -1.4 mmol/L -2.0-3.0 (test code = 387) PATIENT TEMPERATURE (BEAKER) 37.6 (test code = 1818) FIO2 (BEAKER) (test code = 1819) 40.0 POCT-GLUCOSE [id number] 00:28:00 Test Item Value Reference Range Interpretation Comments POC-GLUCOSE METER 129 mg/dL 70-110 H : TESTED A T [facility] 6720 (MICHAEL) (test code = [place], 1538) [address]: Plant Engineering Supervisor/Techni payton ID = [id number] for BARBIE MANCIA RAD, CHEST, 1 VIEW, NON [id number] 21:39:00Reason for exam:->[facility] : 1950 Sex: MFINAL REPORT Chest one view. Clinical history: Post ACB Comparison: Chest radiograph 07/03/2020, 434a. Technique: A single frontal view of the chest was obtained. Findings:The patient is status post interval median sternotomy and CABG. There is a left chest tube with tip in the left lung apex. There is a mediastinal drain. There is an endotracheal tube in satisfactory position. There is a right IJ central venous catheter with tip in the SVC. The heart is normal in size.The aorta is atherosclerotic. There is pulmonary interstitial edema. There are airspace opacities inthe left mid to lower lung villa which may represent edema, atelectasis and/or pneumonia. A small left pleural effusion may be present. There is no pneumothorax. There is a plate and screw device overl ayden the left mid to distal clavicle. Signed: Felix Dallas MDReport Verified Date/Time: 121:39:48 [id number] 21:05:00 Test Item Value Reference Range Interpretation Comments FIBRINOGEN LEVEL (MICHAEL) (test 345 mg/dl 225-434 code = 658) [id number] 21:05:00 Test Item Value Reference Range Interpretation Comments PARTIAL THROMBOPLASTIN TIME 33.1 seconds 22.5-36.0 (BEAKER) (test code = 760) PROTHROMBIN [id number] 21:04:00 Test Item Value Reference Range Interpretation Comments PROTIME (BEAKER) (test code = 19.6 seconds 11.9-14.2 H 759) INR (BEAKER) (test code = 370) 1.71 <=5.90 Effective 11/18/2018: PT Reference Range ChangeNew: 11.9-14.2 Previous: 11.7- 14.7RECOMMENDED COUMADIN/WARFARIN INR THERAPY RANGESSTANDARD DOSE: 2.0-3.0 Includes: PROPHYLAXIS for venous thrombosis, systemic embolization; TREATMENT for venous thrombosis and/or pulmonary embolus.HIGH RISK: Target INR is2.5-3.5 for patients wiht mechanical heart valves.COMPREHENSIVE METABOLIC PANEL 2020-07-03 21:03:00 Test Item Value Reference Range Interpretation Comments TOTAL PROTEIN 5.8 gm/dL 6.0-8.3 L (BEAKER) (test code = 770) ALBUMIN (BEAKER) 3.1 g/dL 3.5-5.0 L (test code = 1145) ALKALINE PHOSPHATASE 49 U/L 40-150 (BEAKER) (test code = 346) BILIRUBIN TOTAL 1.1 mg/dL 0.2-1.2 (BEAKER) (test code = 377) SODIUM (BEAKER) (test 136 meq/L 136-145 code = 381) POTASSIUM (BEAKER) 4.0 meq/L 3.5-5.1 (test code = 379) CHLORIDE (BEAKER) 105 meq/L 98-107 (test code = 382) CO2 (BEAKER) (test 24 meq/L 22-29 code = 355) BLOOD UREA NITROGEN 11 mg/dL 7-21 (BEAKER) (test code = 354) CREATININE (BEAKER) 0.76 mg/dL 0.57-1.25 (test code = 358) GLUCOSE RANDOM 185 mg/dL 70-105 H (BEAKER) (test code = 652) CALCIUM (BEAKER) 8.3 mg/dL 8.4-10.2 L (test code = 697) AST (SGOT) (BEAKER) 39 U/L 5-34 H (test code = 353) ALT (SGPT) (BEAKER) 22 U/L 6-55 (test code = 347) EGFR (BEAKER) (test 102 ESTIMATE D GFR IS code = 1092) mL/min/1.73 sq NOT ACCURA TE m CREATININE CLEARANCE IN PREDICTING GLOMERULAR FILTRATION RATE . ESTIMATED GFR I S NOT APPLICABLE FOR DIALYSIS PATIEN TS. Plant Engineering Supervisor ID - [id number] 21:03:00 Test Item Value Reference Range Interpretation Comments MAGNESIUM (BEAKER) (test code = 1.6 mg/dL 1.6-2.6 627) Plant Engineering Supervisor ID - [id number] 21:03:00 Test Item Value Reference Range Interpretation Comments PHOSPHORUS (BEAKER) (test code = 4.0 mg/dL 2.3-4.7 604) Plant Engineering Supervisor ID - DBCBC W/PLT COUNT & AUTO [id number] 21:00:00 Test Item Value Reference Range Interpretation Comments WHITE BLOOD CELL COUNT (BEAKER) 15.7 K/ L 3.5-10.5 H (test code = 775) RED BLOOD CELL COUNT (BEAKER) 3.55 M/ L 4.63-6.08 L (test code = 761) HEMOGLOBIN (BEAKER) (test code = 10.5 GM/DL 13.7-17.5 L 410) HEMATOCRIT (BEAKER) (test code = 30.6 % 40.1-51.0 L 411) MEAN CORPUSCULAR VOLUME (BEAKER) 86.2 fL 79.0-92.2 (test code = 753) MEAN CORPUSCULAR HEMOGLOBIN 29.6 pg 25.7-32.2 (BEAKER) (test code = 751) MEAN CORPUSCULAR HEMOGLOBIN CONC 34.3 GM/DL 32.3-36.5 (BEAKER) (test code = 752) RED CELL DISTRIBUTION WIDTH 12.4 % 11.6-14.4 (BEAKER) (test code = 412) PLATELET COUNT (BEAKER) (test 121 K/CU MM 150-450 L code = 756) MEAN PLATELET VOLUME (BEAKER) 12.0 fL 9.4-12.4 (test code = 754) NUCLEATED RED BLOOD CELLS 0 /100 WBC 0-0 (BEAKER) (test code = 413) NEUTROPHILS RELATIVE PERCENT 85 % (BEAKER) (test code = 429) LYMPHOCYTES RELATIVE PERCENT 10 % (BEAKER) (test code = 430) MONOCYTES RELATIVE PERCENT 4 % (BEAKER) (test code = 431) EOSINOPHILS RELATIVE PERCENT 1 % (BEAKER) (test code = 432) BASOPHILS RELATIVE PERCENT 0 % (BEAKER) (test code = 437) NEUTROPHILS ABSOLUTE COUNT 13.34 K/ L 1.78-5.38 H (BEAKER) (test code = 670) LYMPHOCYTES ABSOLUTE COUNT 1.50 K/ L 1.32-3.57 (BEAKER) (test code = 414) MONOCYTES ABSOLUTE COUNT (BEAKER) 0.65 K/ L 0.30-0.82 (test code = 415) EOSINOPHILS ABSOLUTE COUNT 0.08 K/ L 0.04-0.54 (BEAKER) (test code = 416) BASOPHILS ABSOLUTE COUNT (BEAKER) 0.04 K/ L 0.01-0.08 (test code = 417) IMMATURE GRANULOCYTES-RELATIVE 1 % 0-1 PERCENT (BEAKER) (test code = 2801) LACTIC ACID, [id number] 20:58:00 Test Item Value Reference Range Interpretation Comments LACTATE BLOOD 1.1 mmol/L 0.5-2.2 Specimen sligh tly ARTERIAL (2) (BEAKER) hemoly zed (test code = 2874) Plant Engineering Supervisor ID - DBCALCIUM, [id number] 20:53:00 Test Item Value Reference Range Interpretation Comments CALCIUM IONIZED (BEAKER) (test 1.11 mmol/L 1.12-1.27 L code = 698) PH, BLOOD (BEAKER) (test code = 7.31 1810) BLOOD GAS, [id number] 20:53:00 Test Item Value Reference Range Interpretation Comments PH ARTERIAL (BEAKER) (test code = 7.42 7.35-7.45 383) PCO2 ARTERIAL (BEAKER) (test code 39 mm Hg 35-45 = 384) PO2 ARTERIAL (BEAKER) (test code 126 mm Hg 80-90 H = 385) O2 SATURATION ARTERIAL (BEAKER) 98.7 % 96.0-97.0 H (test code = 386) HCO3 ARTERIAL (BEAKER) (test code 25 mmol/L 21-29 = 388) BASE EXCESS ARTERIAL (BEAKER) -0.2 mmol/L -2.0-3.0 (test code = 387) PATIENT TEMPERATURE (BEAKER) 35.9 (test code = 1818) FIO2 (BEAKER) (test code = 1819) 60.0 OXYGEN SATURATION, [id number] 20:52:00 Test Item Value Reference Range Interpretation Comments O2 SATURATION (MEASURED) (BEAKER) 74.7 % (test code = 1455) [id number] 20:18:00 Test Item Value Reference Range Interpretation Comments ACTIVATED CLOTTING TIME 109 sec : 74 -137 seconds, (BEAKER) (test code = Baseli ne: TESTED AT 441) [address], [facility] 30: Plant Engineering Supervisor/Techni payton ID = [id number] for Lowell Farmer is [id number] 20:18:00 Test Item Value Reference Range Interpretation Comments ACTIVATED CLOTTING TIME 422 sec : 74 -137 seconds, (BEAKER) (test code = Baseli ne: TESTED AT 441) [address], [facility] 30: Plant Engineering Supervisor/Techni payton ID = [id number] for DANILO, LOBITO N [id number] 20:18:00 Test Item Value Reference Range Interpretation Comments ACTIVATED CLOTTING TIME 538 sec : 74 -137 seconds, (BEAKER) (test code = Baseli ne: TESTED AT 441) [address], [facility] 30: Plant Engineering Supervisor/Techni payton ID = [id number] for DANILO, LOBITO N [id number] 20:18:00 Test Item Value Reference Range Interpretation Comments ACTIVATED CLOTTING TIME 384 sec : 74 -137 seconds, (BEAKER) (test code = Baseli ne: TESTED AT 441) [address], [facility] 30: Plant Engineering Supervisor/Techni payton ID = [id number] for DANILO, LOBITO N [id number] 20:18:00 Test Item Value Reference Range Interpretation Comments ACTIVATED CLOTTING TIME 472 sec : 74 -137 seconds, (BEAKER) (test code = Baseli ne: TESTED AT 441) [address], [facility] 30: Plant Engineering Supervisor/Techni payton ID = [id number] for Lowell Farmer is BLOOD GAS, [id number] 19:15:00 Test Item Value Reference Range Interpretation Comments PH ARTERIAL (BEAKER) (test code = 7.41 7.35-7.45 383) PCO2 ARTERIAL (BEAKER) (test code 40 mm Hg 35-45 = 384) PO2 ARTERIAL (BEAKER) (test code = 324 mm Hg 80-90 H 385) O2 SATURATION ARTERIAL (BEAKER) 99.7 % 96.0-97.0 H (test code = 386) HCO3 ARTERIAL (BEAKER) (test code 25 mmol/L 21-29 = 388) BASE EXCESS ARTERIAL (BEAKER) 0.5 mmol/L -2.0-3.0 (test code = 387) PATIENT TEMPERATURE (BEAKER) (test 36.2 code = 1818) FIO2 (BEAKER) (test code = 1819) 100.0 SODIUM NA-STAT [id number] 19:15:00 Test Item Value Reference Range Interpretation Comments SODIUM (BEAKER) (test code = 381) 133 meq/L 136-145 L GLUCOSE-STAT [id number] 19:15:00 Test Item Value Reference Range Interpretation Comments GLUCOSE RANDOM (BEAKER) (test code 233 mg/dL 70-110 H = 652) HGB/HCT (H&H) - STAT [id number] 19:15:00 Test Item Value Reference Range Interpretation Comments HEMOGLOBIN (BEAKER) (test code = 9.9 GM/DL 13.0-16.8 L 410) HEMATOCRIT (BEAKER) (test code = 29.0 % 40.0-50.0 L 411) POTASSIUM-STAT [id number] 19:07:00 Test Item Value Reference Range Interpretation Comments POTASSIUM (BEAKER) (test code = 4.8 meq/L 3.6-5.5 379) BLOOD GAS, [id number] 18:19:00 Test Item Value Reference Range Interpretation Comments PH ARTERIAL (BEAKER) (test code = 7.38 7.35-7.45 383) PCO2 ARTERIAL (BEAKER) (test code 44 mm Hg 35-45 = 384) PO2 ARTERIAL (BEAKER) (test code = 308 mm Hg 80-90 H 385) O2 SATURATION ARTERIAL (BEAKER) 99.7 % 96.0-97.0 H (test code = 386) HCO3 ARTERIAL (BEAKER) (test code 26 mmol/L 21-29 = 388) BASE EXCESS ARTERIAL (BEAKER) 0.2 mmol/L -2.0-3.0 (test code = 387) PATIENT TEMPERATURE (BEAKER) (test 36.6 code = 1818) FIO2 (BEAKER) (test code = 1819) 79.0 SODIUM NA-STAT [id number] 18:19:00 Test Item Value Reference Range Interpretation Comments SODIUM (BEAKER) (test code = 381) 130 meq/L 136-145 L POTASSIUM-STAT [id number] 18:19:00 Test Item Value Reference Range Interpretation Comments POTASSIUM (BEAKER) (test code = 5.9 meq/L 3.6-5.5 H 379) GLUCOSE-STAT [id number] 18:19:00 Test Item Value Reference Range Interpretation Comments GLUCOSE RANDOM (BEAKER) (test code 272 mg/dL 70-110 H = 652) HGB/HCT (H&H) - STAT [id number] 18:19:00 Test Item Value Reference Range Interpretation Comments HEMOGLOBIN (BEAKER) (test code = 7.5 GM/DL 13.0-16.8 L 410) HEMATOCRIT (BEAKER) (test code = 22.0 % 40.0-50.0 L 411) BLOOD GAS, [id number] 17:43:00 Test Item Value Reference Range Interpretation Comments PH ARTERIAL (BEAKER) (test code = 7.46 7.35-7.45 H 383) PCO2 ARTERIAL (BEAKER) (test code 34 mm Hg 35-45 L = 384) PO2 ARTERIAL (BEAKER) (test code 281 mm Hg 80-90 H = 385) O2 SATURATION ARTERIAL (BEAKER) 99.7 % 96.0-97.0 H (test code = 386) HCO3 ARTERIAL (BEAKER) (test code 26 mmol/L 21-29 = 388) BASE EXCESS ARTERIAL (BEAKER) -0.2 mmol/L -2.0-3.0 (test code = 387) PATIENT TEMPERATURE (BEAKER) 29.4 (test code = 1818) FIO2 (BEAKER) (test code = 1819) 60.0 SODIUM NA-STAT [id number] 17:43:00 Test Item Value Reference Range Interpretation Comments SODIUM (BEAKER) (test code = 381) 133 meq/L 136-145 L GLUCOSE-STAT [id number] 17:43:00 Test Item Value Reference Range Interpretation Comments GLUCOSE RANDOM (BEAKER) (test code 226 mg/dL 70-110 H = 652) HGB/HCT (H&H) - STAT [id number] 17:43:00 Test Item Value Reference Range Interpretation Comments HEMOGLOBIN (BEAKER) (test code = 9.5 GM/DL 13.0-16.8 L 410) HEMATOCRIT (BEAKER) (test code = 28.0 % 40.0-50.0 L 411) POTASSIUM-STAT [id number] 17:42:00 Test Item Value Reference Range Interpretation Comments POTASSIUM (BEAKER) (test code = 5.1 meq/L 3.6-5.5 379) POTASSIUM-STAT [id number] 17:18:00 Test Item Value Reference Range Interpretation Comments POTASSIUM (BEAKER) (test code = 4.7 meq/L 3.6-5.5 379) BLOOD GAS, [id number] 17:18:00 Test Item Value Reference Range Interpretation Comments PH ARTERIAL (BEAKER) (test code = 7.35 7.35-7.45 383) PCO2 ARTERIAL (BEAKER) (test code 42 mm Hg 35-45 = 384) PO2 ARTERIAL (BEAKER) (test code 390 mm Hg 80-90 H = 385) O2 SATURATION ARTERIAL (BEAKER) 99.8 % 96.0-97.0 H (test code = 386) HCO3 ARTERIAL (BEAKER) (test code 23 mmol/L 21-29 = 388) BASE EXCESS ARTERIAL (BEAKER) -3.0 mmol/L -2.0-3.0 L (test code = 387) PATIENT TEMPERATURE (BEAKER) 34.0 (test code = 1818) FIO2 (BEAKER) (test code = 1819) 80.0 SODIUM NA-STAT [id number] 17:18:00 Test Item Value Reference Range Interpretation Comments SODIUM (BEAKER) (test code = 381) 132 meq/L 136-145 L GLUCOSE-STAT [id number] 17:18:00 Test Item Value Reference Range Interpretation Comments GLUCOSE RANDOM (BEAKER) (test code 202 mg/dL 70-110 H = 652) HGB/HCT (H&H) - STAT [id number] 17:18:00 Test Item Value Reference Range Interpretation Comments HEMOGLOBIN (BEAKER) (test code = 8.9 GM/DL 13.0-16.8 L 410) HEMATOCRIT (BEAKER) (test code = 26.0 % 40.0-50.0 L 411) BLOOD GAS, [id number] 17:18:00 Test Item Value Reference Range Interpretation Comments PH VENOUS (BEAKER) (test code = 7.34 7.32-7.42 701) PCO2 VENOUS (BEAKER) (test code = 43 mm Hg 41-51 755) PO2 VENOUS (BEAKER) (test code = 52 mm Hg 25-40 H 702) O2 SATURATION VENOUS (BEAKER) 89.9 % 40.0-70.0 H (test code = 703) HCO3 VENOUS (BEAKER) (test code = 23 mmol/L 21-29 705) BASE EXCESS VENOUS (BEAKER) (test -3.0 mmol/L -2.0-3.0 L code = 704) PATIENT TEMPERATURE (BEAKER) 34.0 (test code = 1818) FIO2 (BEAKER) (test code = 1819) 80.0 CALCIUM, [id number] 15:51:00 Test Item Value Reference Range Interpretation Comments CALCIUM IONIZED (BEAKER) (test 1.07 mmol/L 1.12-1.27 L code = 698) PH, BLOOD (BEAKER) (test code = 7.35 1810) BLOOD GAS, [id number] 15:51:00 Test Item Value Reference Range Interpretation Comments PH ARTERIAL (BEAKER) (test code = 7.36 7.35-7.45 383) PCO2 ARTERIAL (BEAKER) (test code 40 mm Hg 35-45 = 384) PO2 ARTERIAL (BEAKER) (test code 262 mm Hg 80-90 H = 385) O2 SATURATION ARTERIAL (BEAKER) 99.6 % 96.0-97.0 H (test code = 386) HCO3 ARTERIAL (BEAKER) (test code 22 mmol/L 21-29 = 388) BASE EXCESS ARTERIAL (BEAKER) -3.4 mmol/L -2.0-3.0 L (test code = 387) PATIENT TEMPERATURE (BEAKER) 36.3 (test code = 1818) FIO2 (BEAKER) (test code = 1819) 50.0 GLUCOSE-STAT [id number] 15:51:00 Test Item Value Reference Range Interpretation Comments GLUCOSE RANDOM (BEAKER) (test code 146 mg/dL 70-110 H = 652) HGB/HCT (H&H) - STAT [id number] 15:51:00 Test Item Value Reference Range Interpretation Comments HEMOGLOBIN (BEAKER) (test code = 12.0 GM/DL 13.0-16.8 L 410) HEMATOCRIT (BEAKER) (test code = 35.0 % 40.0-50.0 L 411) SODIUM NA-STAT [id number] 15:49:00 Test Item Value Reference Range Interpretation Comments SODIUM (BEAKER) (test code = 381) 136 meq/L 136-145 POTASSIUM-STAT [id number] 15:49:00 Test Item Value Reference Range Interpretation Comments POTASSIUM (BEAKER) (test code = 3.6 meq/L 3.6-5.5 379) BLOOD GAS, [id number] 15:11:00 Test Item Value Reference Range Interpretation Comments PH ARTERIAL (BEAKER) (test code = 7.41 7.35-7.45 383) PCO2 ARTERIAL (BEAKER) (test code 40 mm Hg 35-45 = 384) PO2 ARTERIAL (BEAKER) (test code = 218 mm Hg 80-90 H 385) O2 SATURATION ARTERIAL (BEAKER) 99.5 % 96.0-97.0 H (test code = 386) HCO3 ARTERIAL (BEAKER) (test code 25 mmol/L 21-29 = 388) BASE EXCESS ARTERIAL (BEAKER) 0.0 mmol/L -2.0-3.0 (test code = 387) PATIENT TEMPERATURE (BEAKER) (test 36.3 code = 1818) FIO2 (BEAKER) (test code = 1819) 50.0 CALCIUM, [id number] 15:11:00 Test Item Value Reference Range Interpretation Comments CALCIUM IONIZED (BEAKER) (test 1.11 mmol/L 1.12-1.27 L code = 698) PH, BLOOD (BEAKER) (test code = 7.40 1810) PLATELET AGGREGATION: FUNCTION [id number] 14:05:00 Test Item Value Reference Range Interpretation Comments [id number] Mireya Vernon MD (BEAKER) (test code = (electronic signature) 2622) PLATELET COUNT AGG 245 K/CU MM 150-450 (BEAKER) (test code = 2656) ADP (BEAKER) (test code 43 % 62-100 L = 4654) PLATELET RICH 233 k/cu mm 200-300 PLASMA(BEAKER) (test code = 2134) PLATELET FUNCTION Pattern of SCREEN INTERPRETATION disaggregation present (BEAKER) (test code = with ADP which may be 4655) characteristic of P2Y12 inhibitor effect. Correlation with medication history is required. Platelet Function Screen results may be falsely low with platelet counts<75,000/cu mm.Plant Engineering Supervisor ID- [id number]-GLUCOSE [id number] 12:31:00 Test Item Value Reference Range Interpretation Comments POC-GLUCOSE METER 127 mg/dL 70-110 H : TESTED A T [facility] 6720 (BEAKER) (test code = [place], 1538) [id number]: Plant Engineering Supervisor/Techni payton ID = [id number] for HU NTER, HIWITHA HEMOGLOBIN [id number] 11:05:00 Test Item Value Reference Range Interpretation Comments HEMOGLOBIN A1C (BEAKER) (test code = 6.2 % 4.3-6.1 H 368) PLATELET AGGREGATION: FUNCTION [id number] 10:05:00 Test Item Value Reference Range Interpretation Comments [id number] QC was not (BEAKER) (test code = 2622) acceptable. Test needs to be rep eated. Spoke to rn id: [id number] PLATELET COUNT AGG (BEAKER) QC was not (test code = 2656) acceptabl e. Test needs to be rep eated. Spoke to rn id: [id number] This is a corre cted result. Previou s result was 234 K/CU MM on 07/02/2020 at 1558 [employer] ADP (BEAKER) (test code = QC was not 4654) acceptable. Kiara t needs to be rep eated. Spoke to rn id: [id number] This is a corre cted result. Previou s result was 50 % on 07/02/2020 at 15 58 [employer] PLATELET RICH QC was not PLASMA(BEAKER) (test code = acceptable. Test 2134) needs to be rep eated. Spoke to rn id: [id number] This is a corre cted result. Previou s result was 291 k/cu mm on 07/02/2020 at 1558 [employer] PLATELET FUNCTION SCREEN QC was not INTERPRETATION (BEAKER) acce ptable. Test (test code = 4655) needs to be repeated. Spoke to rn id: [id number] Platelet Function Screen results may be falsely low with platelet counts<75,000/cu mm.Plant Engineering Supervisor ID- [id number]-GLUCOSE [id number] 07:32:00 Test Item Value Reference Range Interpretation Comments POC-GLUCOSE METER 120 mg/dL 70-110 H : TESTED A T [facility] 6720 (BEAKER) (test code = [place], 1538) [id number]: Plant Engineering Supervisor/Techni payton ID = [id number] for NTER, AKWITHA BASIC METABOLIC [id number] 06:53:00 Test Item Value Reference Range Interpretation Comments SODIUM (BEAKER) 136 meq/L 136-145 (test code = 381) POTASSIUM (BEAKER) 4.6 meq/L 3.5-5.1 (test code = 379) CHLORIDE (BEAKER) 100 meq/L 98-107 (test code = 382) CO2 (BEAKER) (test 29 meq/L 22-29 code = 355) BLOOD UREA NITROGEN 12 mg/dL 7-21 (BEAKER) (test code = 354) CREATININE (BEAKER) 1.01 mg/dL 0.57-1.25 (test code = 358) GLUCOSE RANDOM 106 mg/dL 70-105 H (BEAKER) (test code = 652) CALCIUM (BEAKER) 9.2 mg/dL 8.4-10.2 (test code = 697) EGFR (BEAKER) (test 74 mL/min/1.73 ESTIMA DAYLIN GFR IS code = 1092) sq m NOT ACCURATE CREATININE CLEARANCE IN PREDICTING GLOMERULAR FILTRATION RATE . ESTIMATED GFR I S NOT APPLICABLE FOR DIALYSIS PATIEN TS. Plant Engineering Supervisor ID - [id number] 06:53:00 Test Item Value Reference Range Interpretation Comments MAGNESIUM (BEAKER) (test code = 1.9 mg/dL 1.6-2.6 627) Plant Engineering Supervisor ID - EDASIRAD, CHEST, 1 VIEW, NON [id number] 06:53:00Reason for exam:->preoperative exam for ACBShould this be performed at the bedside?->[facility]BERT : 1950 Sex: MFINAL REPORT Chest one view. Clinical history: preoperative exam for ACB Comparison: None. Technique: A single frontal view of the chest was obtained. Findings: The heartis normal in size. The aorta is atherosclerotic. There is no focal pulmonary consolidation, pleural effusion or pneumothorax. There is no pulmonary edema. There is a plate and screw device overlying the left mid to distal clavicle. Impression: No focal pulmonary consolidation. Signed: Felix Dallas MDReport Verified Date/Time: 07/03/2020 06:53:16 APTT 2020-07-03 06:18:00 Test Item Value Reference Range Interpretation Comments PARTIAL THROMBOPLASTIN TIME 63.0 seconds 22.5-36.0 H (BEAKER) (test code = 760) PROTHROMBIN [id number] 06:16:00 Test Item Value Reference Range Interpretation Comments PROTIME (BEAKER) (test code = 15.4 seconds 11.9-14.2 H 759) INR (BEAKER) (test code = 370) 1.25 <=5.90 Effective 11/18/2018: PT Reference Range ChangeNew: 11.9-14.2 Previous: 11.7- 14.7RECOMMENDED COUMADIN/WARFARIN INR THERAPY RANGESSTANDARD DOSE: 2.0-3.0 Includes: PROPHYLAXIS for venous thrombosis, systemic embolization; TREATMENT for venous thrombosis and/or pulmonary embolus.HIGH RISK: Target INR is2.5-3.5 for patients wiht mechanical heart valves.CBC W/PLT COUNT & AUTO [id number] 06:15:00 Test Item Value Reference Range Interpretation Comments WHITE BLOOD CELL COUNT (BEAKER) 10.5 K/ L 3.5-10.5 (test code = 775) RED BLOOD CELL COUNT (BEAKER) 4.38 M/ L 4.63-6.08 L (test code = 761) HEMOGLOBIN (BEAKER) (test code = 12.7 GM/DL 13.7-17.5 L 410) HEMATOCRIT (BEAKER) (test code = 38.3 % 40.1-51.0 L 411) MEAN CORPUSCULAR VOLUME (BEAKER) 87.4 fL 79.0-92.2 (test code = 753) MEAN CORPUSCULAR HEMOGLOBIN 29.0 pg 25.7-32.2 (BEAKER) (test code = 751) MEAN CORPUSCULAR HEMOGLOBIN CONC 33.2 GM/DL 32.3-36.5 (BEAKER) (test code = 752) RED CELL DISTRIBUTION WIDTH 12.3 % 11.6-14.4 (BEAKER) (test code = 412) PLATELET COUNT (BEAKER) (test 226 K/CU MM 150-450 code = 756) MEAN PLATELET VOLUME (BEAKER) 11.9 fL 9.4-12.4 (test code = 754) NUCLEATED RED BLOOD CELLS 0 /100 WBC 0-0 (BEAKER) (test code = 413) NEUTROPHILS RELATIVE PERCENT 54 % (BEAKER) (test code = 429) LYMPHOCYTES RELATIVE PERCENT 35 % (BEAKER) (test code = 430) MONOCYTES RELATIVE PERCENT 8 % (BEAKER) (test code = 431) EOSINOPHILS RELATIVE PERCENT 2 % (BEAKER) (test code = 432) BASOPHILS RELATIVE PERCENT 1 % (BEAKER) (test code = 437) NEUTROPHILS ABSOLUTE COUNT 5.63 K/ L 1.78-5.38 H (BEAKER) (test code = 670) LYMPHOCYTES ABSOLUTE COUNT 3.69 K/ L 1.32-3.57 H (BEAKER) (test code = 414) MONOCYTES ABSOLUTE COUNT (BEAKER) 0.81 K/ L 0.30-0.82 (test code = 415) EOSINOPHILS ABSOLUTE COUNT 0.24 K/ L 0.04-0.54 (BEAKER) (test code = 416) BASOPHILS ABSOLUTE COUNT (BEAKER) 0.06 K/ L 0.01-0.08 (test code = 417) IMMATURE GRANULOCYTES-RELATIVE 0 % 0-1 PERCENT (BEAKER) (test code = 2801) POCT-GLUCOSE [id number] 21:36:00 Test Item Value Reference Range Interpretation Comments POC-GLUCOSE METER 202 mg/dL 70-110 H : TESTED A T [facility] 6720 (BEAKER) (test code = [facility], 1538) [id number]: Plant Engineering Supervisor/Techni payton ID = [id number] for VINCENT KNOX [id number] 20:48:00 Test Item Value Reference Range Interpretation Comments PARTIAL THROMBOPLASTIN TIME 84.6 seconds 22.5-36.0 H (BEAKER) (test code = 760) POCT-GLUCOSE [id number] 17:17:00 Test Item Value Reference Range Interpretation Comments POC-GLUCOSE METER 122 mg/dL 70-110 H : TESTED A T [facility] 6720 (BEAKER) (test code = [facility], 1538) [address]: Plant Engineering Supervisor/Techni payton ID = [id number] for Thor Menard LIPID [id number] 15:00:00 Test Item Value Reference Range Interpretation Comments TRIGLYCERIDES (BEAKER) (test code = 108 mg/dL 540) CHOLESTEROL (BEAKER) (test code = 128 mg/dL 631) HDL CHOLESTEROL (BEAKER) (test code 40 mg/dL = 976) LDL CHOLESTEROL CALCULATED (BEAKER) 66 mg/dL (test code = 633) Triglyceride Reference Range: Low Risk <150 Borderline 150-199 High Risk 200-499 Very High Risk >=500Cholesterol Reference Range: Low Risk <200 Borderline 200-239 High Risk >240HDL Cholesterol Reference Range: Low Risk >=60 High Risk <40LDL Cholesterol Reference Range: Optimal <100 Near Optimal 100-129 Borderline 130-159 High 160-189 Very High >=190 Plant Engineering Supervisor ID - EDASIPOCT-GLUCOSE [id number] 14:40:00 Test Item Value Reference Range Interpretation Comments POC-GLUCOSE METER 112 mg/dL 70-110 H : TESTED A T [facility] 6720 (BEAKER) (test code = [facility] [place], 1538) [address]: Plant Engineering Supervisor/Techni payton ID = [id number] for Thor Menard [id number] 14:34:00 Test Item Value Reference Range Interpretation Comments PARTIAL THROMBOPLASTIN TIME 76.3 seconds 22.5-36.0 H (BEAKER) (test code = 760) BASIC METABOLIC [id number] 07:56:00 Test Item Value Reference Range Interpretation Comments SODIUM (BEAKER) 135 meq/L 136-145 L (test code = 381) POTASSIUM (BEAKER) 4.0 meq/L 3.5-5.1 (test code = 379) CHLORIDE (BEAKER) 101 meq/L 98-107 (test code = 382) CO2 (BEAKER) (test 26 meq/L 22-29 code = 355) BLOOD UREA NITROGEN 11 mg/dL 7-21 (BEAKER) (test code = 354) CREATININE (BEAKER) 0.86 mg/dL 0.57-1.25 (test code = 358) GLUCOSE RANDOM 107 mg/dL 70-105 H (BEAKER) (test code = 652) CALCIUM (BEAKER) 8.9 mg/dL 8.4-10.2 (test code = 697) EGFR (BEAKER) (test 89 mL/min/1.73 ESTIMA DAYLIN GFR IS code = 1092) sq m NOT ACCURATE CREATININE CLEARANCE IN PREDICTING GLOMERULAR FILTRATION RATE . ESTIMATED GFR I S NOT APPLICABLE FOR DIALYSIS PATIEN TS. Plant Engineering Supervisor ID - [id number] 07:56:00 Test Item Value Reference Range Interpretation Comments MAGNESIUM (BEAKER) (test code = 1.9 mg/dL 1.6-2.6 627) Plant Engineering Supervisor ID - EDASIPOCT-GLUCOSE [id number] 07:17:00 Test Item Value Reference Range Interpretation Comments POC-GLUCOSE METER 108 mg/dL 70-110 : TESTED A T [facility] 6720 (BEAKER) (test code = [facility] [place] [facility], 1538) [id number]: Plant Engineering Supervisor/Techni payton ID = [id number] for Thor Menard [id number] 07:07:00 Test Item Value Reference Range Interpretation Comments PARTIAL THROMBOPLASTIN TIME 106.7 seconds 22.5-36.0 H (BEAKER) (test code = 760) CBC W/PLT COUNT & AUTO [id number] 06:53:00 Test Item Value Reference Range Interpretation Comments WHITE BLOOD CELL COUNT (BEAKER) 10.0 K/ L 3.5-10.5 (test code = 775) RED BLOOD CELL COUNT (BEAKER) 4.33 M/ L 4.63-6.08 L (test code = 761) HEMOGLOBIN (BEAKER) (test code = 12.6 GM/DL 13.7-17.5 L 410) HEMATOCRIT (BEAKER) (test code = 36.6 % 40.1-51.0 L 411) MEAN CORPUSCULAR VOLUME (BEAKER) 84.5 fL 79.0-92.2 (test code = 753) MEAN CORPUSCULAR HEMOGLOBIN 29.1 pg 25.7-32.2 (BEAKER) (test code = 751) MEAN CORPUSCULAR HEMOGLOBIN CONC 34.4 GM/DL 32.3-36.5 (BEAKER) (test code = 752) RED CELL DISTRIBUTION WIDTH 12.4 % 11.6-14.4 (BEAKER) (test code = 412) PLATELET COUNT (BEAKER) (test 219 K/CU MM 150-450 code = 756) MEAN PLATELET VOLUME (BEAKER) 11.6 fL 9.4-12.4 (test code = 754) NUCLEATED RED BLOOD CELLS 0 /100 WBC 0-0 (BEAKER) (test code = 413) NEUTROPHILS RELATIVE PERCENT 54 % (BEAKER) (test code = 429) LYMPHOCYTES RELATIVE PERCENT 35 % (BEAKER) (test code = 430) MONOCYTES RELATIVE PERCENT 8 % (BEAKER) (test code = 431) EOSINOPHILS RELATIVE PERCENT 3 % (BEAKER) (test code = 432) BASOPHILS RELATIVE PERCENT 1 % (BEAKER) (test code = 437) NEUTROPHILS ABSOLUTE COUNT 5.34 K/ L 1.78-5.38 (BEAKER) (test code = 670) LYMPHOCYTES ABSOLUTE COUNT 3.49 K/ L 1.32-3.57 (BEAKER) (test code = 414) MONOCYTES ABSOLUTE COUNT (BEAKER) 0.76 K/ L 0.30-0.82 (test code = 415) EOSINOPHILS ABSOLUTE COUNT 0.28 K/ L 0.04-0.54 (BEAKER) (test code = 416) BASOPHILS ABSOLUTE COUNT (BEAKER) 0.05 K/ L 0.01-0.08 (test code = 417) IMMATURE GRANULOCYTES-RELATIVE 0 % 0-1 PERCENT (BEAKER) (test code = 2801) POCT-GLUCOSE [id number] 21:27:00 Test Item Value Reference Range Interpretation Comments POC-GLUCOSE METER 126 mg/dL 70-110 H : TESTED A T [facility] 6720 (BEAKER) (test code = [place] [facility], 1538) [address]: Plant Engineering Supervisor/Techni payton ID = [id number] for MICAH ALMANZA SE SARS-COV2/RT-PCR ([facility])2020-07-01 16:47:00 Test Item Value Reference Range Interpretation Comments SARS-COV2/RT-PCR (test Negative Not Detected, Negative, code = [id number]) See external report for linked test SARS-COV-2 PERFORMING LAB [facility] (test code = [id number]) Negative result for this test determines that SARS-CoV-2 RNA was not present in the specimen above the Limit of Detection (LOD). However, Negative results do not preclude SARS-CoV-2 infection and should not be used as the sole basis for treatment or patient management decisions. Negative results mustbe combined with clinical observations, patient history, and epidemiological information. A false negative result may occur if a specimen is improperly collected, transported or handled. A false negative result should be considered if patient's recent exposures or clinical presentation indicate that COVID-19 (SARS-CoV-2) is likely and diagnostic tests for other causes of illness are negative. Re-testing should be considered in cases of suspected false negatives.The limit of detection for this assay is 800 copies/mL.This SARS CoV-2 test is a real-time RT-PCR test intended for the qualitative detection of nucleic acid from SARS-CoV-2 in a nasopharyngeal swab specimen collected from individuals susp ected of COVID-19 by their healthcare provider.This test has not been Food and Drug Administration (FDA) cleared or approved. This is a modified version of an approved Emergency Use Authorization (EUA) and is in the process of review by the FDA. Once authorized by the FDA, the issued EUA will be effective until the declaration that circumstances exist justifying the authorization of the emergency use of in vitro diagnostic tests for detection and/or diagnosis of COVID-19 is terminated under Section 564(b)(2) of the Act or the EUA is revoked under Section 564(g) of the Act.Fact Sheet for Healthcare Providers:https://www.[employer]/sites/default/files/product/documents/Fact_Shee n_BL_Uxudlbfhh_Ncng_AIYG-IuX-3.pdfFact Sheet for Healthcare Patients:https://www.[employer]/sites/default/files/product/ documents/Izpb_Qyfch_Tpnmsvpf_Aidc_MMBJ-CrE-9.pdfPerforming Laboratory:[address], [place] [id number] METER 2020-07-01 16:31:00 Test Item Value Reference Range Interpretation Comments POC-GLUCOSE METER 132 mg/dL 70-110 H : TESTED A T [facility] 6720 (BEAKER) (test code = [facility], 1538) [address]: Plant Engineering Supervisor/Techni payton ID = [id number] for HU NTER, HIWITHA POCT-GLUCOSE [id number] 12:03:00 Test Item Value Reference Range Interpretation Comments POC-GLUCOSE METER 98 mg/dL 70-110 : TESTED A T [facility] 6720 (BEAKER) (test code = [facility], 1538) [address]: Plant Engineering Supervisor/Techni payton ID = [id number] for LONG ER, HIWITHA HEMOGLOBIN [id number] 08:14:00 Test Item Value Reference Range Interpretation Comments HEMOGLOBIN A1C (BEAKER) (test code = 6.2 % 4.3-6.1 H 368) POCT-GLUCOSE [id number] 07:11:00 Test Item Value Reference Range Interpretation Comments POC-GLUCOSE METER 129 mg/dL 70-110 H : TESTED A T [facility] 6720 (BEAKER) (test code = [facility], 1538) [id number]: Plant Engineering Supervisor/Techni payton ID = [id number] for HU NTER, HIWITHA BASIC METABOLIC [id number] 05:26:00 Test Item Value Reference Range Interpretation Comments SODIUM (BEAKER) 134 meq/L 136-145 L (test code = 381) POTASSIUM (BEAKER) 4.0 meq/L 3.5-5.1 (test code = 379) CHLORIDE (BEAKER) 101 meq/L 98-107 (test code = 382) CO2 (BEAKER) (test 26 meq/L 22-29 code = 355) BLOOD UREA NITROGEN 11 mg/dL 7-21 (BEAKER) (test code = 354) CREATININE (BEAKER) 0.82 mg/dL 0.57-1.25 (test code = 358) GLUCOSE RANDOM 111 mg/dL 70-105 H (BEAKER) (test code = 652) CALCIUM (BEAKER) 8.9 mg/dL 8.4-10.2 (test code = 697) EGFR (BEAKER) (test 94 mL/min/1.73 ESTIMA DAYLIN GFR IS code = 1092) sq m NOT ACCURATE CREATININE CLEARANCE IN PREDICTING GLOMERULAR FILTRATION RATE . ESTIMATED GFR I S NOT APPLICABLE FOR DIALYSIS PATIEN TS. Plant Engineering Supervisor ID - [id number] 05:26:00 Test Item Value Reference Range Interpretation Comments MAGNESIUM (BEAKER) (test code = 1.9 mg/dL 1.6-2.6 627) Plant Engineering Supervisor ID - EDASILIPID [id number] 05:26:00 Test Item Value Reference Range Interpretation Comments TRIGLYCERIDES (BEAKER) (test code = 91 mg/dL 540) CHOLESTEROL (BEAKER) (test code = 131 mg/dL 631) HDL CHOLESTEROL (BEAKER) (test code 39 mg/dL = 976) LDL CHOLESTEROL CALCULATED (BEAKER) 74 mg/dL (test code = 633) Triglyceride Reference Range: Low Risk <150 Borderline 150-199 High Risk 200-499 Very High Risk >=500Cholesterol Reference Range: Low Risk <200 Borderline 200-239 High Risk >240HDL Cholesterol Reference Range: Low Risk >=60 High Risk <40LDL Cholesterol Reference Range: Optimal <100 Near Optimal 100-129 Borderline 130-159 High 160-189 Very High >=190 Plant Engineering Supervisor ID - [id number] 05:26:00 Test Item Value Reference Range Interpretation Comments PARTIAL THROMBOPLASTIN TIME 98.0 seconds 22.5-36.0 H (BEAKER) (test code = 760) CBC W/PLT COUNT & AUTO [id number] 04:55:00 Test Item Value Reference Range Interpretation Comments WHITE BLOOD CELL COUNT (BEAKER) 11.4 K/ L 3.5-10.5 H (test code = 775) RED BLOOD CELL COUNT (BEAKER) 4.40 M/ L 4.63-6.08 L (test code = 761) HEMOGLOBIN (BEAKER) (test code = 12.9 GM/DL 13.7-17.5 L 410) HEMATOCRIT (BEAKER) (test code = 37.1 % 40.1-51.0 L 411) MEAN CORPUSCULAR VOLUME (BEAKER) 84.3 fL 79.0-92.2 (test code = 753) MEAN CORPUSCULAR HEMOGLOBIN 29.3 pg 25.7-32.2 (BEAKER) (test code = 751) MEAN CORPUSCULAR HEMOGLOBIN CONC 34.8 GM/DL 32.3-36.5 (BEAKER) (test code = 752) RED CELL DISTRIBUTION WIDTH 12.3 % 11.6-14.4 (BEAKER) (test code = 412) PLATELET COUNT (BEAKER) (test 220 K/CU MM 150-450 code = 756) MEAN PLATELET VOLUME (BEAKER) 11.5 fL 9.4-12.4 (test code = 754) NUCLEATED RED BLOOD CELLS 0 /100 WBC 0-0 (BEAKER) (test code = 413) NEUTROPHILS RELATIVE PERCENT 53 % (BEAKER) (test code = 429) LYMPHOCYTES RELATIVE PERCENT 36 % (BEAKER) (test code = 430) MONOCYTES RELATIVE PERCENT 8 % (BEAKER) (test code = 431) EOSINOPHILS RELATIVE PERCENT 2 % (BEAKER) (test code = 432) BASOPHILS RELATIVE PERCENT 1 % (BEAKER) (test code = 437) NEUTROPHILS ABSOLUTE COUNT 6.03 K/ L 1.78-5.38 H (BEAKER) (test code = 670) LYMPHOCYTES ABSOLUTE COUNT 4.08 K/ L 1.32-3.57 H (BEAKER) (test code = 414) MONOCYTES ABSOLUTE COUNT (BEAKER) 0.95 K/ L 0.30-0.82 H (test code = 415) EOSINOPHILS ABSOLUTE COUNT 0.21 K/ L 0.04-0.54 (BEAKER) (test code = 416) BASOPHILS ABSOLUTE COUNT (BEAKER) 0.06 K/ L 0.01-0.08 (test code = 417) IMMATURE GRANULOCYTES-RELATIVE 0 % 0-1 PERCENT (BEAKER) (test code = 2801) POCT-GLUCOSE [id number] 20:49:00 Test Item Value Reference Range Interpretation Comments POC-GLUCOSE METER 139 mg/dL 70-110 H : TESTED A T [facility] 6720 (BEAKER) (test code = [facility], 1538) 93143: Plant Engineering Supervisor/Techni payton ID = [id number] for FI MORENO RHOADES POCT-GLUCOSE [id number] 16:20:00 Test Item Value Reference Range Interpretation Comments POC-GLUCOSE METER 110 mg/dL 70-110 : TESTED A T [facility] 6720 (BEAKER) (test code = [facility], 1538) 2020[address]: Plant Engineering Supervisor/Techni payton ID = [id number] for Do chelsyguindio, Thor POCT-GLUCOSE [id number] 11:50:00 Test Item Value Reference Range Interpretation Comments POC-GLUCOSE METER 156 mg/dL 70-110 H : TESTED A T [facility] 6720 (BEAKER) (test code = [facility], 1538) 95953: Plant Engineering Supervisor/Techni payton ID = [id number] for Do minguez, Thor PLATELET AGGREGATION: FUNCTION [id number] 10:23:00 Test Item Value Reference Range Interpretation Comments [id number] Bryson Wells MD ([facility]) (test code = (electronic 2622) signature) PLATELET COUNT AGG 206 K/CU MM 150-450 (BEAKER) (test code = 2656) ADP (BEAKER) (test code 19 % 62-100 L = 4654) PLATELET RICH 299 k/cu mm 200-300 PLASMA(BEAKER) (test code = 2134) PLATELET FUNCTION SCREEN Decreased aggregation INTERPRETATION (BEAKER) with ADP which (test code = 2005) indicates platelet dysfunction that may be due to medication effect, uremia, or other platelet function disorders. Clinical correlation is required. Platelet Function Screen results may be falsely low with platelet counts<75,000/cu mm.Plant Engineering Supervisor ID- [id number]-GLUCOSE [id number] 08:18:00 Test Item Value Reference Range Interpretation Comments POC-GLUCOSE METER 122 mg/dL 70-110 H : TESTED A T [facility] 6720 (BEAKER) (test code = [facility] [place], 1538) 30[address]: Plant Engineering Supervisor/Techni payton ID = [id number] for Thor Menard BASIC METABOLIC [id number] 05:51:00 Test Item Value Reference Range Interpretation Comments SODIUM (BEAKER) 134 meq/L 136-145 L (test code = 381) POTASSIUM (BEAKER) 4.0 meq/L 3.5-5.1 (test code = 379) CHLORIDE (BEAKER) 100 meq/L 98-107 (test code = 382) CO2 (BEAKER) (test 26 meq/L 22-29 code = 355) BLOOD UREA NITROGEN 11 mg/dL 7-21 (BEAKER) (test code = 354) CREATININE (BEAKER) 0.89 mg/dL 0.57-1.25 (test code = 358) GLUCOSE RANDOM 116 mg/dL 70-105 H (BEAKER) (test code = 652) CALCIUM (BEAKER) 9.0 mg/dL 8.4-10.2 (test code = 697) EGFR (BEAKER) (test 85 mL/min/1.73 ESTIMA DAYLIN GFR IS code = 1092) sq m NOT ACCURATE CREATININE CLEARANCE IN PREDICTING GLOMERULAR FILTRATION RATE . ESTIMATED GFR I S NOT APPLICABLE FOR DIALYSIS PATIEN TS. Plant Engineering Supervisor ID - [id number] 05:51:00 Test Item Value Reference Range Interpretation Comments MAGNESIUM (BEAKER) (test code = 2.0 mg/dL 1.6-2.6 627) Plant Engineering Supervisor ID - [id number] 05:24:00 Test Item Value Reference Range Interpretation Comments PARTIAL THROMBOPLASTIN TIME 95.5 seconds 22.5-36.0 H (BEAKER) (test code = 760) CBC W/PLT COUNT & AUTO [id number] 05:14:00 Test Item Value Reference Range Interpretation Comments WHITE BLOOD CELL COUNT (BEAKER) 10.9 K/ L 3.5-10.5 H (test code = 775) RED BLOOD CELL COUNT (BEAKER) 4.39 M/ L 4.63-6.08 L (test code = 761) HEMOGLOBIN (BEAKER) (test code = 12.9 GM/DL 13.7-17.5 L 410) HEMATOCRIT (BEAKER) (test code = 37.1 % 40.1-51.0 L 411) MEAN CORPUSCULAR VOLUME (BEAKER) 84.5 fL 79.0-92.2 (test code = 753) MEAN CORPUSCULAR HEMOGLOBIN 29.4 pg 25.7-32.2 (BEAKER) (test code = 751) MEAN CORPUSCULAR HEMOGLOBIN CONC 34.8 GM/DL 32.3-36.5 (BEAKER) (test code = 752) RED CELL DISTRIBUTION WIDTH 12.2 % 11.6-14.4 (BEAKER) (test code = 412) PLATELET COUNT (BEAKER) (test 229 K/CU MM 150-450 code = 756) MEAN PLATELET VOLUME (BEAKER) 11.6 fL 9.4-12.4 (test code = 754) NUCLEATED RED BLOOD CELLS 0 /100 WBC 0-0 (BEAKER) (test code = 413) NEUTROPHILS RELATIVE PERCENT 57 % (BEAKER) (test code = 429) LYMPHOCYTES RELATIVE PERCENT 33 % (BEAKER) (test code = 430) MONOCYTES RELATIVE PERCENT 8 % (BEAKER) (test code = 431) EOSINOPHILS RELATIVE PERCENT 1 % (BEAKER) (test code = 432) BASOPHILS RELATIVE PERCENT 1 % (BEAKER) (test code = 437) NEUTROPHILS ABSOLUTE COUNT 6.23 K/ L 1.78-5.38 H (BEAKER) (test code = 670) LYMPHOCYTES ABSOLUTE COUNT 3.58 K/ L 1.32-3.57 H (BEAKER) (test code = 414) MONOCYTES ABSOLUTE COUNT (BEAKER) 0.87 K/ L 0.30-0.82 H (test code = 415) EOSINOPHILS ABSOLUTE COUNT 0.14 K/ L 0.04-0.54 (BEAKER) (test code = 416) BASOPHILS ABSOLUTE COUNT (BEAKER) 0.05 K/ L 0.01-0.08 (test code = 417) IMMATURE GRANULOCYTES-RELATIVE 0 % 0-1 PERCENT (BEAKER) (test code = 2801) POCT-GLUCOSE [id number] 22:56:00 Test Item Value Reference Range Interpretation Comments POC-GLUCOSE METER 106 mg/dL 70-110 : TESTED A T [facility] 6720 (BEAKER) (test code = [facility], 1538) 11102: Plant Engineering Supervisor/Techni payton ID = [id number] for DA KANDY LOPEZO POCT-GLUCOSE [id number] 18:08:00 Test Item Value Reference Range Interpretation Comments POC-GLUCOSE METER 116 mg/dL 70-110 H : TESTED A T [facility] 6720 (BEAKER) (test code = [facility], 1538) 57983: Plant Engineering Supervisor/Techni payton ID = [id number] for Do minguez, Thor POCT-GLUCOSE [id number] 11:48:00 Test Item Value Reference Range Interpretation Comments POC-GLUCOSE METER 122 mg/dL 70-110 H : TESTED A T [facility] 6720 (BEAKER) (test code = [facility], [facility]8) 588[address]: Plant Engineering Supervisor/Techni payton ID = [id number] for Do minguez, Thor POCT-GLUCOSE [id number] 07:38:00 Test Item Value Reference Range Interpretation Comments POC-GLUCOSE METER 124 mg/dL 70-110 H : TESTED A T [facility] 6720 (BEAKER) (test code = [facility], [facility]8) 23571: Plant Engineering Supervisor/Techni payton ID = [id number] for Do minguez, Thor BASIC METABOLIC [id number] 04:27:00 Test Item Value Reference Range Interpretation Comments SODIUM (BEAKER) 132 meq/L 136-145 L (test code = 381) POTASSIUM (BEAKER) 4.1 meq/L 3.5-5.1 (test code = 379) CHLORIDE (BEAKER) 98 meq/L 98-107 (test code = 382) CO2 (BEAKER) (test 27 meq/L 22-29 code = 355) BLOOD UREA NITROGEN 13 mg/dL 7-21 (BEAKER) (test code = 354) CREATININE (BEAKER) 0.96 mg/dL 0.57-1.25 (test code = 358) GLUCOSE RANDOM 111 mg/dL 70-105 H (BEAKER) (test code = 652) CALCIUM (BEAKER) 8.9 mg/dL 8.4-10.2 (test code = 697) EGFR (BEAKER) (test 78 mL/min/1.73 ESTIMA DAYLIN GFR IS code = 1092) sq m NOT ACCURATE CREATININE CLEARANCE IN PREDICTING GLOMERULAR FILTRATION RATE . ESTIMATED GFR I S NOT APPLICABLE FOR DIALYSIS PATIEN TS. Plant Engineering Supervisor ID - BEN [id number] 04:27:00 Test Item Value Reference Range Interpretation Comments MAGNESIUM (BEAKER) (test code = 1.9 mg/dL 1.6-2.6 627) Plant Engineering Supervisor ID - BEN [id number] 04:01:00 Test Item Value Reference Range Interpretation Comments PARTIAL THROMBOPLASTIN TIME 74.0 seconds 22.5-36.0 H (BEAKER) (test code = 760) CBC W/PLT COUNT & AUTO [id number] 03:49:00 Test Item Value Reference Range Interpretation Comments WHITE BLOOD CELL COUNT (BEAKER) 12.2 K/ L 3.5-10.5 H (test code = 775) RED BLOOD CELL COUNT (BEAKER) 4.35 M/ L 4.63-6.08 L (test code = 761) HEMOGLOBIN (BEAKER) (test code = 12.6 GM/DL 13.7-17.5 L 410) HEMATOCRIT (BEAKER) (test code = 37.2 % 40.1-51.0 L 411) MEAN CORPUSCULAR VOLUME (BEAKER) 85.5 fL 79.0-92.2 (test code = 753) MEAN CORPUSCULAR HEMOGLOBIN 29.0 pg 25.7-32.2 (BEAKER) (test code = 751) MEAN CORPUSCULAR HEMOGLOBIN CONC 33.9 GM/DL 32.3-36.5 (BEAKER) (test code = 752) RED CELL DISTRIBUTION WIDTH 12.0 % 11.6-14.4 (BEAKER) (test code = 412) PLATELET COUNT (BEAKER) (test 205 K/CU MM 150-450 code = 756) MEAN PLATELET VOLUME (BEAKER) 11.2 fL 9.4-12.4 (test code = 754) NUCLEATED RED BLOOD CELLS 0 /100 WBC 0-0 (BEAKER) (test code = 413) NEUTROPHILS RELATIVE PERCENT 56 % (BEAKER) (test code = 429) LYMPHOCYTES RELATIVE PERCENT 34 % (BEAKER) (test code = 430) MONOCYTES RELATIVE PERCENT 8 % (BEAKER) (test code = 431) EOSINOPHILS RELATIVE PERCENT 1 % (BEAKER) (test code = 432) BASOPHILS RELATIVE PERCENT 0 % (BEAKER) (test code = 437) NEUTROPHILS ABSOLUTE COUNT 6.81 K/ L 1.78-5.38 H (BEAKER) (test code = 670) LYMPHOCYTES ABSOLUTE COUNT 4.11 K/ L 1.32-3.57 H (BEAKER) (test code = 414) MONOCYTES ABSOLUTE COUNT (BEAKER) 1.01 K/ L 0.30-0.82 H (test code = 415) EOSINOPHILS ABSOLUTE COUNT 0.14 K/ L 0.04-0.54 (BEAKER) (test code = 416) BASOPHILS ABSOLUTE COUNT (BEAKER) 0.05 K/ L 0.01-0.08 (test code = 417) IMMATURE GRANULOCYTES-RELATIVE 0 % 0-1 PERCENT (BEAKER) (test code = 2801) POCT-GLUCOSE [id number] 21:43:00 Test Item Value Reference Range Interpretation Comments POC-GLUCOSE METER 122 mg/dL 70-110 H : TESTED A T [facility] 6720 (BEAKER) (test code = [facility], 1538) 55892: Plant Engineering Supervisor/Techni payton ID = [id number] for Annia Hartman POCT-GLUCOSE [id number] 17:37:00 Test Item Value Reference Range Interpretation Comments POC-GLUCOSE METER 126 mg/dL 70-110 H : TESTED A T [facility] 6720 (BEAKER) (test code = [facility], 1538) 03619: Plant Engineering Supervisor/Techni payton ID = [id number] for DONELL SPANGLER, ANAIS CT, CAROTID, [id number] 17:01:00Unlisted Reason for Exam - Click Yes and Enter Reason Below->YesPre-CABG evaluationUnlisted Reason for Exam->Pre-cabg evaluation [facility] : 1950 Sex: MFINAL REPORT CLINICAL HISTORY: Unlisted Reason for ExamPre-cabg evaluation TECHNIQUE: Initially, noncontrast head CT images were performed. Contiguous contrast-enhanced axial images through the neck followed by axial images through the head with coronal and sagittal reformations to assess the arterial circulation. 3-D reconstructions were performed using a volume rendered technique separately on a workstation. This exam was performed according to the departmental dose optimization program which includes automated exposure control, adjustment of the mA and/or kV according to the patient size, and/or use of an iterative reconstruction technique. Stenosis evaluation reported in compliance with NASCET criteria. COMPARISON: None FINDINGS: CTA head:Please note that CTA is inherently insensitive in evaluating the cavernous and skullbase portions of the internal carotid arteries because of adjacent bone and venous opacification. There is no CT evidence of acute infarct or hemorrhage. There is no hydrocephalus or midline shift. Generalized cerebral atrophy with ex vacuo dilatation of the ventricular system proportionate to sulci. Scattered foci of hypoattenuation within the periventricular and subcortical white matter are a nonspecific finding commonly attributed to chronic small vessel ischemic disease. The skull is intact. No major branch vessel occlusion or high-grade focal stenosis. Atherosclerosis in the bilateral cavernous and paraclinoid ICAs without flow-limiting stenosis. There is no evidence of intracranial aneurysm. The major intradural venous sinuses arepatent. CTA neck:Great vessel origins: No occlusion or high-grade stenosis. Carotid arteries: Atherosclerosis of the bilateral carotid bifurcations. There is greater than 75% focal stenosis of the left ICA and less than 50% focal stenosis of the right ICA per NASCET criteria. Vertebral arteries: Moderate stenosis of the right vertebral origin. Remainder of the vertebral arteries are of normal caliber. No fracture or suspicious osseous lesion. Cervical soft tissues are unremarkable. Visualized lungapices are clear. IMPRESSION:1.No acute intracranial hemorrhage or CT evidence of territorial infarct. 2.No intracranial proximal branch arterial occlusion or high-grade focal stenosis.3.Carotid and75% focal stenosis of the left ICA and less than 50% focal stenosis of the right ICA per NASCET criteria. Signed: Faith Barriosort Verified Date/Time: 06/28/2020 17:01:15 [facility], CTANGTY [id number] 17:01:00Unlisted Reason for Exam - Click Yes and Enter Reason Below->YesUnlisted Reason for Exam->pre CABG evaluation [facility]IL[facility] : 1950 Sex: MFINAL REPORT CLINICAL HISTORY: Unlisted Reason for ExamPre-cabg evaluation TECHNIQUE: Initially, noncontrast head CT images were performed. Contiguous contrast-enhanced axial images through the neck followed by axial images through the head with coronal and sagittal reformations to assess the arterial circulation. 3-D reconstructions were performed using a volume rendered technique separately on a workstation. This exam was performed according to the departmental dose optimization program which includes automated exposure control, adjustment of the mA and/or kV according to the patient size, and/or use of an iterative reconstruction technique. Stenosis evaluation reported in compliance with NASCET criteria. COMPARISON: None FINDINGS: CTA head:Please note that CTA is inherently insensitive in evaluating the cavernous and skullbase portions of the internal carotid arteries because of adjacent bone and venous opacification. There is no CT evidence of acute infarct or hemorrhage. There is no hydrocephalus or midline shift. Generalized cerebral atrophy with ex vacuo dilatation of the ventricular system proportionate to sulci. Scattered foci of hypoattenuation within the periventricular and subcortical white matter are a nonspecific finding commonly attributed to chronic small vessel ischemic disease. The skull is intact. No major branch vessel occlusion or high-grade focal stenosis. Atherosclerosis in the bilateral cavernous and paraclinoid ICAs without flow-limiting stenosis. There is no evidence of intracranial aneurysm. The major intradural venous sinuses arepatent. CTA neck:Great vessel origins: No occlusion or high-grade stenosis. Carotid arteries: Atherosclerosis of the bilateral carotid bifurcations. There is greater than 75% focal stenosis of the left ICA and less than 50% focal stenosis of the right ICA per NASCET criteria. Vertebral arteries: Moderate stenosis of the right vertebral origin. Remainder of the vertebral arteries are of normal caliber. No fracture or suspicious osseous lesion. Cervical soft tissues are unremarkable. Visualized lungapices are clear. IMPRESSION:1.No acute intracranial hemorrhage or CT evidence of territorial infarct. 2.No intracranial proximal branch arterial occlusion or high-grade focal stenosis.3.Carotid and75% focal stenosis of the left ICA and less than 50% focal stenosis of the right ICA per NASCET criteria. Signed: Faith Barrios Verified Date/Time: 06/28/2020 17:01:15 -GLUCOSE [id number] 11:24:00 Test Item Value Reference Range Interpretation Comments POC-GLUCOSE METER 140 mg/dL 70-110 H : TESTED A T [facility] 6720 ([employer]) (test code = [place], 1538) [address]: Plant Engineering Supervisor/Techni payton ID = [id number] for ANAIS MACKENZIE PLATELET AGGREGATION: FUNCTION [id number] 10:31:00 Test Item Value Reference Range Interpretation Comments [id number] Peyton Dooley MD ([employer]) (test code = (electronic 2622) signature) PLATELET COUNT AGG 236 K/CU MM 150-450 (BEAKER) (test code = 2656) ADP (140 ProofAKER) (test 18 % 62-100 L This is a code = 1474) corrected result. Previous result was 35 % on 06/27/2020 at 1607 [employer] PLATELET RICH 283 k/cu mm 200-300 PLASMA(140 ProofAKER) (test code = 2134) PLATELET FUNCTION Decreased SCREEN INTERPRETATION aggregation with (140 ProofAKER) (test code = ADP which 5) indicates platelet dysfunction that may be due to medication effect, uremia, or other platelet function disorders. Clinical correlation is required. Platelet Function Screen results may be falsely low with platelet counts<75,000/cu mm.Plant Engineering Supervisor ID- [id number]-GLUCOSE [id number] 07:09:00 Test Item Value Reference Range Interpretation Comments POC-GLUCOSE METER 103 mg/dL 70-110 : TESTED A T [facility] 6720 (BEAKER) (test code = [place], 1538) [address]: Plant Engineering Supervisor/Techni payton ID = [id number] for MT ANÍBAL, ANAIS BASIC METABOLIC [id number] 06:05:00 Test Item Value Reference Range Interpretation Comments SODIUM (BEAKER) 134 meq/L 136-145 L (test code = 381) POTASSIUM (BEAKER) 4.0 meq/L 3.5-5.1 (test code = 379) CHLORIDE (BEAKER) 101 meq/L 98-107 (test code = 382) CO2 (BEAKER) (test 25 meq/L 22-29 code = 355) BLOOD UREA NITROGEN 16 mg/dL 7-21 (BEAKER) (test code = 354) CREATININE (BEAKER) 1.07 mg/dL 0.57-1.25 (test code = 358) GLUCOSE RANDOM 113 mg/dL 70-105 H (BEAKER) (test code = 652) CALCIUM (BEAKER) 8.8 mg/dL 8.4-10.2 (test code = 697) EGFR (BEAKER) (test 69 mL/min/1.73 ESTIMA DAYLIN GFR IS code = 1092) sq m NOT ACCURATE CREATININE CLEARANCE IN PREDICTING GLOMERULAR FILTRATION RATE . ESTIMATED GFR I S NOT APPLICABLE FOR DIALYSIS PATIEN TS. Plant Engineering Supervisor ID - BEN [id number] 06:05:00 Test Item Value Reference Range Interpretation Comments MAGNESIUM (BEAKER) (test code = 2.3 mg/dL 1.6-2.6 627) Plant Engineering Supervisor ID - BEN [id number] 03:55:00 Test Item Value Reference Range Interpretation Comments PARTIAL THROMBOPLASTIN TIME 87.3 seconds 22.5-36.0 H (BEAKER) (test code = 760) CBC W/PLT COUNT & AUTO [id number] 03:43:00 Test Item Value Reference Range Interpretation Comments WHITE BLOOD CELL COUNT (BEAKER) 11.8 K/ L 3.5-10.5 H (test code = 775) RED BLOOD CELL COUNT (BEAKER) 4.41 M/ L 4.63-6.08 L (test code = 761) HEMOGLOBIN (BEAKER) (test code = 13.0 GM/DL 13.7-17.5 L 410) HEMATOCRIT (BEAKER) (test code = 38.4 % 40.1-51.0 L 411) MEAN CORPUSCULAR VOLUME (BEAKER) 87.1 fL 79.0-92.2 (test code = 753) MEAN CORPUSCULAR HEMOGLOBIN 29.5 pg 25.7-32.2 (BEAKER) (test code = 751) MEAN CORPUSCULAR HEMOGLOBIN CONC 33.9 GM/DL 32.3-36.5 (BEAKER) (test code = 752) RED CELL DISTRIBUTION WIDTH 12.1 % 11.6-14.4 (BEAKER) (test code = 412) PLATELET COUNT (BEAKER) (test 215 K/CU MM 150-450 code = 756) MEAN PLATELET VOLUME (BEAKER) 11.1 fL 9.4-12.4 (test code = 754) NUCLEATED RED BLOOD CELLS 0 /100 WBC 0-0 (BEAKER) (test code = 413) NEUTROPHILS RELATIVE PERCENT 55 % (BEAKER) (test code = 429) LYMPHOCYTES RELATIVE PERCENT 35 % (BEAKER) (test code = 430) MONOCYTES RELATIVE PERCENT 8 % (BEAKER) (test code = 431) EOSINOPHILS RELATIVE PERCENT 1 % (BEAKER) (test code = 432) BASOPHILS RELATIVE PERCENT 0 % (BEAKER) (test code = 437) NEUTROPHILS ABSOLUTE COUNT 6.51 K/ L 1.78-5.38 H (BEAKER) (test code = 670) LYMPHOCYTES ABSOLUTE COUNT 4.12 K/ L 1.32-3.57 H (BEAKER) (test code = 414) MONOCYTES ABSOLUTE COUNT (BEAKER) 0.88 K/ L 0.30-0.82 H (test code = 415) EOSINOPHILS ABSOLUTE COUNT 0.17 K/ L 0.04-0.54 (BEAKER) (test code = 416) BASOPHILS ABSOLUTE COUNT (BEAKER) 0.05 K/ L 0.01-0.08 (test code = 417) IMMATURE GRANULOCYTES-RELATIVE 0 % 0-1 PERCENT (BEAKER) (test code = 2801) [id number] 23:43:00 Test Item Value Reference Range Interpretation Comments PARTIAL THROMBOPLASTIN TIME 72.7 seconds 22.5-36.0 H (BEAKER) (test code = 760) POCT-GLUCOSE [id number] 21:02:00 Test Item Value Reference Range Interpretation Comments POC-GLUCOSE METER 126 mg/dL 70-110 H : TESTED A T [facility] 6720 (BEAKER) (test code = [facility], 1538) [address]: Plant Engineering Supervisor/Techni payton ID = [id number] for Annia Hartman [id number] 17:42:00 Test Item Value Reference Range Interpretation Comments PARTIAL THROMBOPLASTIN TIME 78.3 seconds 22.5-36.0 H (BEAKER) (test code = 760) POCT-GLUCOSE [id number] 16:57:00 Test Item Value Reference Range Interpretation Comments POC-GLUCOSE METER 110 mg/dL 70-110 : TESTED A T [facility] 6720 (BEAKER) (test code = [facility], 1538) 66038: Plant Engineering Supervisor/Techni payton ID = [id number] for BRIT NTER, HIWITHA HEMOGLOBIN [id number] 13:39:00 Test Item Value Reference Range Interpretation Comments HEMOGLOBIN A1C (BEAKER) (test code = 6.2 % 4.3-6.1 H 368) POCT-GLUCOSE [id number] 12:30:00 Test Item Value Reference Range Interpretation Comments POC-GLUCOSE METER 198 mg/dL 70-110 H : TESTED A T [facility] (BEAKER) (test code = [facility] [place] [facility], 1538) [id number]: Plant Engineering Supervisor/Techni payton ID = [id number] for HU NTER, HIWITHA SARS-COV2/RT-PCR ([facility])2020-06-27 11:20:00 Test Item Value Reference Range Interpretation Comments SARS-COV2/RT-PCR (test Negative Not Detected, Negative, code = 4045315) See external report for linked test SARS-COV-2 PERFORMING LAB [facility] (test code = 4013049) Negative result for this test determines that SARS-CoV-2 RNA was not present in the specimen above the Limit of Detection (LOD). However, Negative results do not preclude SARS-CoV-2 infection and should not be used as the sole basis for treatment or patient management decisions. Negative results mustbe combined with clinical observations, patient history, and epidemiological information. A false negative result may occur if a specimen is improperly collected, transported or handled. A false negative result should be considered if patient's recent exposures or clinical presentation indicate that COVID-19 (SARS-CoV-2) is likely and diagnostic tests for other causes of illness are negative. Re-testing should be considered in cases of suspected false negatives.The limit of detection for this assay is 800 copies/mL.This SARS CoV-2 test is a real-time RT-PCR test intended for the qualitative detection of nucleic acid from SARS-CoV-2 in a nasopharyngeal swab specimen collected from individuals susp ected of COVID-19 by their healthcare provider.This test has not been Food and Drug Administration (FDA) cleared or approved. This is a modified version of an approved Emergency Use Authorization (EUA) and is in the process of review by the FDA. Once authorized by the FDA, the issued EUA will be effective until the declaration that circumstances exist justifying the authorization of the emergency use of in vitro diagnostic tests for detection and/or diagnosis of COVID-19 is terminated under Section 564(b)(2) of the Act or the EUA is revoked under Section 564(g) of the Act.Fact Sheet for Healthcare Providers:https://www.Noknoker.Pheed/sites/default/files/product/documents/Fact_Shee h_OK_Qmnvnioac_Swir_JZDJ-FrH-8.pdfFact Sheet for Healthcare Patients:https://www.Noknoker.Pheed/sites/default/files/product/ documents/Qbsk_Epxps_Hjyokxhk_Nlwg_KFUE-AiJ-1.pdfPerforming Laboratory:[facility], [place] [id number] 10:23:00 Test Item Value Reference Range Interpretation Comments PARTIAL THROMBOPLASTIN TIME 60.9 seconds 22.5-36.0 H (BEAKER) (test code = 760) 6 hours after starting heparin infusion and as indicated per sliding scalePOCT- GLUCOSE [id number] 05:10:00 Test Item Value Reference Range Interpretation Comments POC-GLUCOSE METER 110 mg/dL 70-110 : TESTED A T [facility] 6720 (BEAKER) (test code = [place], 1538) [id number]: Plant Engineering Supervisor/Techni payton ID = [id number] for MICAH ALMANZA SE TSH/FREE T4 IF [id number] 04:24:00 Test Item Value Reference Range Interpretation Comments THYROID STIMULATING HORMONE 1.241 uIU/mL 0.350-4.940 (BEAKER) (test code = 772) Plant Engineering Supervisor ID Caleb ARELI WBASIC METABOLIC [id number] 04:23:00 Test Item Value Reference Range Interpretation Comments SODIUM (BEAKER) 135 meq/L 136-145 L (test code = 381) POTASSIUM (BEAKER) 3.8 meq/L 3.5-5.1 (test code = 379) CHLORIDE (BEAKER) 101 meq/L 98-107 (test code = 382) CO2 (BEAKER) (test 24 meq/L 22-29 code = 355) BLOOD UREA NITROGEN 10 mg/dL 7-21 (BEAKER) (test code = 354) CREATININE (BEAKER) 0.89 mg/dL 0.57-1.25 (test code = 358) GLUCOSE RANDOM 127 mg/dL 70-105 H (BEAKER) (test code = 652) CALCIUM (BEAKER) 9.1 mg/dL 8.4-10.2 (test code = 697) EGFR (BEAKER) (test 85 mL/min/1.73 ESTIMA DAYLIN GFR IS code = 1092) sq m NOT ACCURATE CREATININE CLEARANCE IN PREDICTING GLOMERULAR FILTRATION RATE . ESTIMATED GFR I S NOT APPLICABLE FOR DIALYSIS PATIEN TS. Plant Engineering Supervisor ID - ARELI [id number] 04:23:00 Test Item Value Reference Range Interpretation Comments MAGNESIUM (BEAKER) (test code = 1.8 mg/dL 1.6-2.6 627) Plant Engineering Supervisor ID - ARELI [id number] 04:23:00 Test Item Value Reference Range Interpretation Comments PHOSPHORUS (BEAKER) (test code = 3.6 mg/dL 2.3-4.7 604) Plant Engineering Supervisor ID - ARELI WLIPID [id number] 04:23:00 Test Item Value Reference Range Interpretation Comments TRIGLYCERIDES (BEAKER) (test code = 117 mg/dL 540) CHOLESTEROL (BEAKER) (test code = 165 mg/dL 631) HDL CHOLESTEROL (BEAKER) (test code 40 mg/dL = 976) LDL CHOLESTEROL CALCULATED (BEAKER) 102 mg/dL (test code = 633) Triglyceride Reference Range: Low Risk <150 Borderline 150-199 High Risk 200-499 Very High Risk >=500Cholesterol Reference Range: Low Risk <200 Borderline 200-239 High Risk >240HDL Cholesterol Reference Range: Low Risk >=60 High Risk <40LDL Cholesterol Reference Range: Optimal <100 Near Optimal 100-129 Borderline 130-159 High 160-189 Very High >=190 Plant Engineering Supervisor ID - ARELIWHEPATIC FUNCTION [id number] 04:23:00 Test Item Value Reference Range Interpretation Comments TOTAL PROTEIN (BEAKER) (test code = 7.8 gm/dL 6.0-8.3 770) ALBUMIN (BEAKER) (test code = 1145) 3.9 g/dL 3.5-5.0 BILIRUBIN TOTAL (BEAKER) (test code 0.7 mg/dL 0.2-1.2 = 377) BILIRUBIN DIRECT (BEAKER) (test 0.3 mg/dL 0.1-0.5 code = 706) ALKALINE PHOSPHATASE (BEAKER) (test 68 U/L 40-150 code = 346) AST (SGOT) (BEAKER) (test code = 29 U/L 5-34 353) ALT (SGPT) (BEAKER) (test code = 21 U/L 6-55 347) Plant Engineering Supervisor ID Caleb SINGLETON [id number] 03:56:00 Test Item Value Reference Range Interpretation Comments PARTIAL THROMBOPLASTIN TIME 36.6 seconds 22.5-36.0 H (BEAKER) (test code = 760) Prior to initiating heparinPT/[id number] 03:56:00 Test Item Value Reference Range Interpretation Comments PROTIME (BEAKER) (test code = 14.5 seconds 11.9-14.2 H 759) INR (BEAKER) (test code = 370) 1.17 <=5.90 PARTIAL THROMBOPLASTIN TIME 36.6 seconds 22.5-36.0 H (BEAKER) (test code = 760) Effective 11/18/2018: PT Reference Range ChangeNew: 11.9-14.2 Previous: 11.7- 14.7RECOMMENDED COUMADIN/WARFARIN INR THERAPY RANGESSTANDARD DOSE: 2.0-3.0 Includes: PROPHYLAXIS for venous thrombosis, systemic embolization; TREATMENT for venous thrombosis and/or pulmonary embolus.HIGH RISK: Target INR is2.5-3.5 for patients wiht mechanical heart valves.Prior to initiating heparinCBC W/PLT COUNT & AUTO [id number] 03:49:00 Test Item Value Reference Range Interpretation Comments WHITE BLOOD CELL COUNT (BEAKER) 11.0 K/ L 3.5-10.5 H (test code = 775) RED BLOOD CELL COUNT (BEAKER) 4.75 M/ L 4.63-6.08 (test code = 761) HEMOGLOBIN (BEAKER) (test code = 13.7 GM/DL 13.7-17.5 410) HEMATOCRIT (BEAKER) (test code = 40.5 % 40.1-51.0 411) MEAN CORPUSCULAR VOLUME (BEAKER) 85.3 fL 79.0-92.2 (test code = 753) MEAN CORPUSCULAR HEMOGLOBIN 28.8 pg 25.7-32.2 (BEAKER) (test code = 751) MEAN CORPUSCULAR HEMOGLOBIN CONC 33.8 GM/DL 32.3-36.5 (BEAKER) (test code = 752) RED CELL DISTRIBUTION WIDTH 12.2 % 11.6-14.4 (BEAKER) (test code = 412) PLATELET COUNT (BEAKER) (test 215 K/CU MM 150-450 code = 756) MEAN PLATELET VOLUME (BEAKER) 11.1 fL 9.4-12.4 (test code = 754) NUCLEATED RED BLOOD CELLS 0 /100 WBC 0-0 (BEAKER) (test code = 413) NEUTROPHILS RELATIVE PERCENT 61 % (BEAKER) (test code = 429) LYMPHOCYTES RELATIVE PERCENT 30 % (BEAKER) (test code = 430) MONOCYTES RELATIVE PERCENT 7 % (BEAKER) (test code = 431) EOSINOPHILS RELATIVE PERCENT 1 % (BEAKER) (test code = 432) BASOPHILS RELATIVE PERCENT 1 % (BEAKER) (test code = 437) NEUTROPHILS ABSOLUTE COUNT 6.70 K/ L 1.78-5.38 H (BEAKER) (test code = 670) LYMPHOCYTES ABSOLUTE COUNT 3.34 K/ L 1.32-3.57 (BEAKER) (test code = 414) MONOCYTES ABSOLUTE COUNT (BEAKER) 0.79 K/ L 0.30-0.82 (test code = 415) EOSINOPHILS ABSOLUTE COUNT 0.09 K/ L 0.04-0.54 (BEAKER) (test code = 416) BASOPHILS ABSOLUTE COUNT (BEAKER) 0.05 K/ L 0.01-0.08 (test code = 417) IMMATURE GRANULOCYTES-RELATIVE 0 % 0-1 PERCENT (BEAKER) (test code = 2801)
[2021-11-18 10:57] LABS: Absolute Lymphocytes (CBC) 2.2 K/uL (0.7-4.9); Hematocrit 39.3 % (39.6-49.0); Lymphocytes % 18.6 % (15.3-44.8); MPV 9.9 fL (7.6-11.3); RBC Red Blood Cell Count 4.55 M/uL (4.33-5.43)
[2021-11-18] MEDS ORDERED: NA CHLORIDE 0.9% 500 ML ONE (11:03)
[2021-11-18] MEDS ORDERED: FAMOTIDINE 20 MG/2 ML VIAL IV ONE (11:03)
[2021-11-18] MEDS ORDERED: ONDANSETRON 4 MG/2 ML VIAL ONE (11:03)
[2021-11-18 11:09] LABS: Troponin High Sensitivity 7.1 pg/mL (<58.9)
--- NOTE | 2021-11-18 11:40 | RAD REPORT ---
EXAM DESCRIPTION: RAD - Chest Single View - 11/18/2021 11:08 am CLINICAL HISTORY: MALAISE Chest pain. COMPARISON: Chest Pa And Lat (2 Views) dated 11/02/2021; Chest Single View dated 06/24/2020; Chest Pa A nd Lat (2 Views) dated 06/24/2017 FINDINGS: Portable technique limits examination quality. The lungs are grossly clear. The heart is mildly enlarged with changes of a prior CABG noted. No disp laced fractures.Hardware is present left clavicle. IMPRESSION: No acute intrathoracic process suspected.
--- NOTE | 2021-11-18 12:17 | RAD REPORT ---
EXAM DESCRIPTION: US - Extremity Venous Uni Ltd - 11/18/2021 12:07 pm CLINICAL HISTORY: pain and swelling Neck pain and swelling. COMPARISON: No comparisons FINDINGS: Examination was limited to assessment of the left internal jugular vein. No thrombus seen in the left internal jugular vein. IMPRESSION: No left internal jugular vein thrombus.
--- NOTE | 2021-11-18 12:24 | RAD REPORT ---
EXAM DESCRIPTION: - CP - 11/18/2021 12:12 pm CLINICAL HISTORY: recent endarterectomy Neck pain and swelling COMPARISON: No comparisons TECHNIQUE: Real-time sonographic evaluation of both carotid systems was performed. Doppler interroga tion was performed with waveform tracing bilaterally. FINDINGS: Normal high resistance waveforms are noted in both external carotid arteries. The common c arotid arteries and internal carotid arteries show normal low resistance waveforms. There is a large amount of hard plaque seen proximal right internal carotid artery with significant e levation of peak systolic velocity 350 cm/second. This indicates significant stenosis. No left-sided stenosis seen and patient reports recent history endarterectomy on the left side. Soft tissues of the left neck appear edematous. Antegrade flow seen in both vertebral arteries. IMPRESSION: Severe stenosis suspected proximal right internal carotid artery. No significant left-sided carotid stenosis seen. Left neck soft tissues are moderately edematous.
--- NOTE | 2021-11-18 13:18 | EDPHYS ---
Physician Documentation [facility] Name: Cj Grubbs Age: 71 yrs Sex: Male : 1950 Arrival Date: 11/18/2021 Time: 09:59 Bed 19 Private MD: Tommie Kohli T ED Physician London Edmond Historical: - Allergies: 11/18 10:04 No Known Allergies; iw - PMHx: 10:04 Diabetes - NIDDM; High Cholesterol; Hypertension; iw - Immunization history:: Client reports receiving the 2nd dose of the Covid vaccine. - Social history:: Smoking status: Patient denies any tobacco usage or history of. Exam: 11:14 ECG was reviewed by the Attending Physician. kdr Vital Signs: 10:05 BP 153 / 71; Pulse 60; Resp 16; Temp 98.2; Pulse Ox 97% ; Weight 85.28 kg; Height 5 ft. iw 6 in. (167.64 cm); 10:38 BP 149 / 60; Pulse 57; Resp 17; Pulse Ox 100% ; jh6 11:15 BP 137 / 65; Pulse 57; Resp 16; Pulse Ox 98% ; Pain 0/10; jh6 13:05 BP 135 / 63; Pulse 48; Resp 17; Pulse Ox 10% ; Pain 0/10; jh6 13:35 BP 135 / 63; Pulse 53; Resp 16; Pulse Ox 96% ; bp 10:05 Body Mass Index 30.34 (85.28 kg, 167.64 cm) iw MDM: 13:17 Patient medically screened. [facility] 11/18 10:17 Order name: Basic Metabolic Panel; Complete Time: 13:16 kdr 11/18 10:17 Order name: CBC with Diff; Complete Time: 13:16 kdr 11/18 10:17 Order name: Troponin HS; Complete Time: 13:16 kdr 11/18 10:17 Order name: XRAY Chest (1 view); Complete Time: 13:16 kdr 11/18 11:00 Order name: US Extremity Venous Unilateral Ltd; Complete Time: 13: kdr 11/18 12:10 Order name: Carotid Artery Bilateral; Complete Time: 13:16 EDSC 11/18 10:17 Order name: EKG; Complete Time: 10:23 kdr 11/18 10:17 Order name: Cardiac monitoring; Complete Time: 11:02 kdr 11/18 10:17 Order name: EKG - Nurse/Tech; Complete Time: [facility] 11/18 10:17 Order name: IV Saline Lock; Complete Time: [facility] 11/18 10:17 Order name: Labs collected and sent; Complete Time: [facility] 11/18 10:17 Order name: O2 Per Protocol; Complete Time: [facility] 11/18 10:17 Order name: O2 Sat Monitoring; Complete Time: : [facility] EC: Rate is 57 beats/min. Rhythm is regular, Sinus bradycardia with No ectopy. QRS [place] is kdr Normal. MO interval is normal. QRS interval is normal. QT interval is normal. Clinical impression: NSR w/ Non-specific ST/T Changes and Sinus bradycardia. Administered Medications: 11: Drug: Zofran (Ondansetron) 4 mg Route: IVP; Site: left hand; [facility] 13:24 Follow up: Response: No adverse reaction [facility] 11:02 Drug: NS 0.9% 500 ml Route: IV; Rate: bolus; Site: left hand; [facility] 13:24 Follow up: IV Status: Completed infusion [facility] 11:02 Drug: Pepcid (famotidine) 20 mg Route: IVP; Site: left hand; [facility] 13:24 Follow up: Response: No adverse reaction [facility] Disposition Summary: 11/18/21 13:17 Discharge Ordered Location: Home kdr Problem: an ongoing problem kdr Symptoms: are unchanged kdr Condition: Stable kdr Diagnosis - Post operative pain, nausea - resolved kdr Followup: kdr - With: Tommie Kohli MD - When: 2 - 3 days - Reason: Wound Recheck, If symptoms return, Further diagnostic work-up, Recheck today's complaints, Continuance of care, Re-evaluation by your physician Discharge Instructions: - Discharge Summary Sheet kdr - Nausea and Vomiting, Adult, Ligw-yp-Tzir kdr - Carotid Artery Disease, Avsd-rh-Breg kdr Forms: - Medication Reconciliation Form kdr - Thank You Letter kdr Prescriptions: - Zofran 4 mg Oral Tablet - take 1 tablet by ORAL route every 4-6 hours As needed; 12 tablet; Refills: 0, kdr Product Selection Permitted Signatures: Dispatcher [employer] London Thakur MD MD kdr Preeti Sierra RN RN iw Olga Quinteros RN RN jh6
--- NOTE | 2021-11-18 13:18 | ER ---
Nurse's Notes [facility] Name: Cj Grubbs Age: 71 yrs Sex: Male : 1950 Arrival Date: 11/18/2021 Time: 09:59 Bed 19 Private MD: Tommie Kohli T Diagnosis: Post operative pain, nausea - resolved Presentation: 11/18 10:05 Chief complaint: Patient states: woke up feeling woozy this morning, stomach felt iw uneasy, felt like throwing up , had surgery Friday on carotid in [place] at [facility]. Coronavirus screen: At this time, the client does not indicate any symptoms associated with coronavirus-19. Ebola Screen: Patient negative for fever greater than or equal to 101.5 degrees Fahrenheit, and additional compatible Ebola Virus Disease symptoms Patient denies exposure to infectious person. Patient denies travel to an Ebola-affected area in the 21 days before illness onset. No symptoms or risks identified at this time. Initial Sepsis Screen: Does the patient meet any 2 criteria? No. Patient's initial sepsis screen is negative. Does the patient have a suspected source of infection? No. Patient's initial sepsis screen is negative. Risk Assessment: Do you want to hurt yourself or someone else? Patient reports no desire to harm self or others. Onset of symptoms was November 18, 2021. 10:05 Method Of Arrival: Ambulatory iw 10:05 Acuity: JESSICA 3 iw Historical: - Allergies: 10:04 No Known Allergies; iw - PMHx: 10:04 Diabetes - NIDDM; High Cholesterol; Hypertension; iw - Immunization history:: Client reports receiving the 2nd dose of the Covid vaccine. - Social history:: Smoking status: Patient denies any tobacco usage or history of. Screenin:40 Abuse screen: Denies threats or abuse. jh6 10:40 Nutritional screening: No deficits noted. Tuberculosis screening: No symptoms or risk jh6 factors identified. Fall Risk IV access (20 points). Assessment: 00:00 Reassessment: Patient and/or family updated on plan of care and expected duration. Pain jh6 level reassessed. Patient is alert, oriented x 3, equal unlabored respirations, skin warm/dry/pink. ALSO REPORTING NO NAUSEA AT THIS TIME. Patient denies pain at this time. Patient states feeling better. 10:40 General: Appears in no apparent distress. Behavior is calm, cooperative. jh6 10:40 Pain: Complains of pain in left sternocleidomastoid, left lateral aspect of neck and jh6 left anterior aspect of neck Pain currently is 3 out of 10 on a pain scale. Quality of pain is described as aching, Pain began 2-3 days ago. GI: Abdomen is non-distended, Bowel sounds present X 4 quads. Abd is soft and non tender Reports nausea. 11:45 Reassessment: No changes from previously documented assessment. Patient and/or family jh6 updated on plan of care and expected duration. Pain level reassessed. VENOUS US AT BEDSIDE WELL . 13:35 Reassessment: PT D/C HOME AMBULATORY WITH FAMILY, DX WITH POST-SURGICAL PAIN. bp Vital Signs: 10:05 BP 153 / 71; Pulse 60; Resp 16; Temp 98.2; Pulse Ox 97% ; Weight 85.28 kg; Height 5 ft. iw 6 in. (167.64 cm); 10:38 BP 149 / 60; Pulse 57; Resp 17; Pulse Ox 100% ; jh6 11:15 BP 137 / 65; Pulse 57; Resp 16; Pulse Ox 98% ; Pain 0/10; jh6 13:05 BP 135 / 63; Pulse 48; Resp 17; Pulse Ox 10% ; Pain 0/10; jh6 13:35 BP 135 / 63; Pulse 53; Resp 16; Pulse Ox 96% ; bp 10:05 Body Mass Index 30.34 (85.28 kg, 167.64 cm) iw ED Course: 09:59 Patient arrived in ED. am2 09:59 oTmmie Kohli MD is Private Physician. am2 10:06 Triage completed. iw 10:06 Arm band placed on. iw 10:17 London Edmond MD is Attending Physician. kdr 10:24 Olga Quinteros RN is Primary Nurse. jh6 10:40 Bed in low position. Call light in reach. Side rails up X 1. Adult w/ patient. jh6 10:45 Inserted saline lock: 20 gauge in left hand, using aseptic technique. Blood collected. jh6 10:50 EKG done, by ED staff, reviewed by London Edmond MD. jh6 11:02 XRAY Chest (1 view) Sent. jh6 11:04 X-ray(s) taken. jh6 11:10 XRAY Chest (1 view) In Process Unspecified. EDMS 11:10 US Extremity Venous Unilateral Ltd In Process Unspecified. EDMS 12:14 Carotid Artery Bilateral In Process Unspecified. EDMS 13:16 Tommie Kohli MD is Referral Physician. kdr 13:24 No provider procedures requiring assistance completed. jh6 13:35 IV discontinued, intact, bleeding controlled, No redness/swelling at site. Pressure bp dressing applied. Administered Medications: 11:01 Drug: Zofran (Ondansetron) 4 mg Route: IVP; Site: left hand; jh6 13:24 Follow up: Response: No adverse reaction jh6 11:02 Drug: NS 0.9% 500 ml Route: IV; Rate: bolus; Site: left hand; jh6 13:24 Follow up: IV Status: Completed infusion jh6 11:02 Drug: Pepcid (famotidine) 20 mg Route: IVP; Site: left hand; jh6 13:24 Follow up: Response: No adverse reaction [facility] Medication: 13:35 VIS not applicable for this client. bp Outcome: 13:17 Discharge ordered by . kdr 13:35 Discharged to home ambulatory, with family. bp 13:35 Condition: stable 13:35 Discharge instructions given to patient, Instructed on discharge instructions, follow up and referral plans. medication usage, Demonstrated understanding of instructions, follow-up care, medications, Prescriptions given X 1. 13:37 Patient left the ED. bp Signatures: Dispatcher [employer] EDTN London Edmond MD MD kdr Williams, Irene, RN FREDI Ana Bell Brian, FREDI RN bp Olga Quinteros RN RN jh6
[2021-11-18 13:44] VITALS: TEMP 98.2
[2021-11-18 13:49] VITALS: BP 135/63
[2021-11-18 13:51] VITALS: O2SAT 96
--- NOTE | 2021-11-20 12:21 | EKG ---
Test Date: 2021-11-18 Test Time: 10:44:01 Event Planning Manager: ISA MEASUREMENT RESULTS: Intervals: Rate: 57 AK: 208 QRSD: 74 QT: 418 QTc: 406 [place]: P: 33 AK: 208 QRS: 12 T: 36 INTERPRETIVE STATEMENTS: Sinus bradycardia Possible Left atrial enlargement Borderline ECG Compared to ECG 11/02/2021 11:42:28 First degree AV block no longer present Myocardial infarct finding no longer present Electronically Signed On 11-20-21 12:17:04 CDT by Shaheed Apple
== END 2021-11-18 13:37 | disposition home or self-care (01) ==
LOC: ER 09:54
DX: G89.18 Other acute postprocedural pain (principal); E11.9 Type 2 diabetes mellitus without complications; E78.00 Pure hypercholesterolemia, unspecified; I10 Essential (primary) hypertension
CPT/HCPCS: 96361; 93005; 85025; 80048; 36415; 84484; 71045; 93880; 93971; 96375; 96374; 99284; J7040; J2405; J3490